=== PATIENT | male | born 1950 | race Two or more races ===

== ENCOUNTER 2016-07-11 09:30 | Emergency (ER) | payer OTHER ==
[2016-07-11 09:55] VITALS: BP 143/76; PULSE 64; TEMP 97.7; BMI 28.2
--- NOTE | 2016-07-11 10:50 | PDOC ---
History of Present Illness - General Chief Complaint: Wound Stated Complaint: RT KNEE PAIN Time Seen by Provider: 07/11/16 10:09 History Source: Patient Exam Limitations: No Limitations - History of Present Illness Initial Comments: 07/11/16 10:44 65-year-old male presents the ED with wound to his right phan for the past 10 days. Patient states was walking in his home in [facility] when scraped against a piece of furniture causing him to abrade the skin. Patient states went to a local clinic who gave him a tetanus and antibiotics. Patient states completed the antibiotics yesterday and although he denies any worsening symptoms he also states that the wound has not completely closed so came here for second opinion and evaluation. Patient states no history of immunosuppression including diabetes. Patient denies radiation of pain, patient denies swelling or increased redness. Timing/Duration: changing over time Severity: mild Associated Symptoms: reports: denies symptoms Past History - Past Medical History Allergies/Adverse Reactions: Allergies Allergy/AdvReac Type Severity Reaction Status Date / Time No Known Allergies Allergy Verified 07/11/16 09:55 Home Medications: Ambulatory Orders Amlodipine Besylate [Norvasc -] 10 mg PO DAILY 07/11/16 Aspirin [ASA -] 81 mg PO DAILY 07/11/16 Cholecalciferol (Vitamin D3) [Vitamin D3] 50,000 unit PO MO 07/11/16 Cyclobenzaprine HCl [Flexeril 10 mg] 10 mg PO BID PRN 07/11/16 Losartan Potassium 100 mg PO DAILY 07/11/16 Metoprolol Succinate [Toprol Xl -] 100 mg PO DAILY 07/11/16 Sulfamethoxazole/Trimethoprim [Bactrim Ds -] 1 tab PO BID #14 tablet 07/11/16 Cardiac Disorders: Yes HTN: Yes Hypercholesterolemia: Yes - Surgical History Cardiac Surgery: Yes (STENTS) - Psycho/Social/Smoking Cessation Hx Suicidal Ideation: No Smoking History: Never smoked Information on smoking cessation initiated: No Hx Alcohol Use: No Drug/Substance Use Hx: No Substance Use Type: None Patient Lives Alone: No Lives with/in: spouse/SO Review of Systems - Review of Systems Able to Perform ROS?: Yes Constitutional: No: Symptoms Reported Musculoskeletal: No: Symptoms Reported Integumentary: Yes: See HPI Neurological: No: Numbness, Weakness Endocrine: No: Symptoms Reported Hematologic/Lymphatic: No: Symptoms Reported *Physical Exam - Vital Signs Last Vital Signs Temp Pulse Resp BP Pulse Ox 97.7 F 64 18 143/76 97 07/11/16 09:51 07/11/16 09:51 07/11/16 09:51 07/11/16 09:51 07/11/16 09:51 - Physical Exam General Appearance: Yes: Nourished, Appropriately Dressed. No: Apparent Distress Vascular Pulses: Dorsalis-Pedis (R): 2+ Extremity: positive: Normal Capillary Refill, Normal Range of Motion. negative : Normal Inspection (Pt with pink epitheal moist wound measuring 3x2 cm to anterior mid phan with minmal erythema surrounding wound. No edema, streaking or increased warmth. Center draining serosangious fluid ), Tender Integumentary: positive: Normal Color, Warm, Moist Neurologic: positive: Motor Strength 5/5 (ambulatory) Medical Decision Making - Medical Decision Making 07/11/16 10:49 Patient with wound to the right anterior phan which she states has not worsened but still is present and is healing slowly. Patient is not a diabetic or immunosuppressant did receive a tetanus in [place] 9 days ago. Patient be discharged home after collecting a wound culture with Bactrim *DC/Admit/Observation/Transfer Diagnosis at time of Disposition: Leg wound, right Qualifiers: Encounter type: initial encounter Qualified Code(s): S81.801A - Unspecified open wound, right lower leg, initial encounter - Discharge Dispostion Disposition: HOME Condition at time of disposition: Good - Prescriptions Prescriptions: Sulfamethoxazole/Trimethoprim [Bactrim Ds -] 1 tab PO BID #14 tablet - Referrals Referrals: Last Tavera [Primary Care Provider] - - Patient Instructions Printed Discharge Instructions: Skin Wound Additional Instructions: I recommend that you take the antibiotic as prescribed until completed. Please continue to place bacitracin to the affected area twice a day leaving open to air. Please also a loosefitting clothes to avoid irritation and friction to the area. Please follow-up with your PCP or return to ED if symptoms worsen
== END 2016-07-11 11:00 | disposition home or self-care (01) ==
LOC: JER 09:30
DX: S81.801A Unspecified open wound, right lower leg, initial encounter (principal); W22.01XA Walked into wall, initial encounter; Y93.89 Activity, other specified; Y92.9 Unspecified place or not applicable; Z95.5 Presence of coronary angioplasty implant and graft; I10 Essential (primary) hypertension; I51.9 Heart disease, unspecified
CPT/HCPCS: 87070; 87186; 87205; 99281-25

== ENCOUNTER 2017-06-20 20:43 | Observation (INO) | payer MEDICARE, OTHER ==
--- NOTE | 2017-06-20 20:59 | PDOC ---
Rapid Medical Evaluation Chief Complaint: Chest Pain Time Seen by Provider: 06/20/17 20:55 Medical Evaluation: Allergies Allergy/AdvReac Type Severity Reaction Status Date / Time No Known Allergies Allergy Verified 07/11/16 09:55 06/20/17 20:55 I have performed a brief in-person evaluation of the patient. The patient presents with a chief complaints of right chest pain since 4pm, with shortness of breath with exertion. Also reports discomfort in lower back and back of neck Pertinent physical exam findings: NAD unlabored breathing heart s1s2 I have ordered the following: ekg labs The patient will proceed to the ED for further evaluation.
--- NOTE | 2017-06-20 21:54 | PDOC ---
History of Present Illness <Vira Li - Last Filed: 06/21/17 00:23> - History of Present Illness Initial Comments: 06/20/17 22:54 The patient is a 66 year old male with a history of HTN, HLD, CAD s/p Stenting who presents for evaluation of chest pain and shortness of breath. The patient reports a 1 day history of sharp right sided chest pain that was initially intermittent and is now constant prompting his presentation to the ED for evaluation. He notes some associated dyspnea on exertion as well as worsening symptoms with movement. He also reports some lower back pain, but otherwise denies fevers, chills, nausea, vomiting, abdominal pain, or changes with urination or bowel movements. <Vinnie Scott - Last Filed: 06/22/17 09:12> - General Chief Complaint: Chest Pain Stated Complaint: CHEST AND BACK PAIN Time Seen by Provider: 06/20/17 20:55 Past History <Vira Li - Last Filed: 06/21/17 00:23> - Past Medical History Cardiac Disorders: Yes COPD: No HTN: Yes Hypercholesterolemia: Yes - Surgical History Cardiac Surgery: Yes (STENTS) - Suicide/Smoking/Psychosocial Hx Smoking History: Never smoked Hx Alcohol Use: No Drug/Substance Use Hx: No Substance Use Type: None <Vinnie Scott - Last Filed: 06/22/17 09:12> - Past Medical History Allergies/Adverse Reactions: Allergies Allergy/AdvReac Type Severity Reaction Status Date / Time No Known Allergies Allergy Verified 07/11/16 09:55 Home Medications: Ambulatory Orders Amlodipine Besylate [Norvasc -] 10 mg PO DAILY 07/11/16 Aspirin [ASA -] 81 mg PO DAILY 07/11/16 Cyclobenzaprine HCl [Flexeril 10 mg] 10 mg PO BID PRN 07/11/16 Losartan Potassium 100 mg PO DAILY 07/11/16 Metoprolol Succinate [Toprol Xl -] 100 mg PO DAILY 07/11/16 Review of Systems - Review of Systems Comments:: 06/20/17 22:56 Constitutional: No fevers, chills, fatigue, malaise HEENT: No Rhinorrhea, nasal congestion, visual changes Cardiovascular: Chest pain. No syncope, palpitations, lightheadedness Respiratory: Dyspnea on Exertion. No Cough, Hemoptysis, Gastrointestinal: No Abdominal pain, Nausea, Vomiting, Constipation, Diarrhea, Melena Genitourinary: No Dysuria, Frequency, Urgency, Hesitancy, Hematuria, Flank pain Musculoskeletal: No Myalgia, arthralgia Skin: No rashes, itching, bruising, pallor Neurologic: No Headache, Dizziness, Numbness, Weakness, or Tingling Psychiatric: No Hallucinations. No SI or HI <SoniaVinnie - Last Filed: 06/22/17 09:12> *Physical Exam - Vital Signs Last Vital Signs Temp Pulse Resp BP Pulse Ox 98.8 F 58 L 18 129/73 99 06/20/17 20:55 06/20/17 20:55 06/20/17 20:55 06/20/17 20:55 06/20/17 20:55 <Vira Li - Last Filed: 06/21/17 00:23> - Vital Signs Last Vital Signs Temp Pulse Resp BP Pulse Ox 98.8 F 58 L 18 129/73 99 06/20/17 20:55 06/20/17 20:55 06/20/17 20:55 06/20/17 20:55 06/20/17 20:55 - Physical Exam Comments: 06/20/17 22:57 General Appearance: Nourished. No Apparent Distress HEENT: EOMI, CONSUELO. No Pharyngeal Erythema, Tonsillar Exudate, Tonsillar Erythema Neck: No Cervical Lymphadenopathy Respiratory/Chest: Lungs Clear, Normal Breath Sounds. No Crackles, Rales, Rhonchi, Wheezing Cardiovascular: Regular Rhythm, Regular Rate. No Murmur, Gallops, Rubs Gastrointestinal/Abdominal: Normal Bowel Sounds, Soft. No Guarding, Rebound, Tenderness Musculoskeletal: No CVA Tenderness Extremity: Normal Capillary Refill Integumentary: Normal Color, Dry, Warm Neurologic: Fully Oriented, Alert, Normal Mood/Affect, Normal Response, <Vinnie Scott - Last Filed: 06/22/17 09:12> Heart Score/ECG Review - History History: Moderately suspicious - Electrocardiogram EKG: Normal - Age Age: >/= 65 - Risk Factors Risk Factors Heart Score: Yes Hx Hypercholesterolemia, Yes Hx Hypertension, Yes Hx Obesity Based on the list above the patient has:: >/=3 risk factors or Hx atherosclerotic disease - Troponin Troponin: </= normal limit - Score Heart Score - Total: 5 #1 ECG reviewed & interpreted by me at: 22:57 General ECG Interpretation: Sinus Rhythm, Normal Rate, Normal Intervals, No acute ischemic changes <Vinnie Scott - Last Filed: 06/22/17 09:12> ED Treatment Course - LABORATORY CBC & Chemistry Diagram: 06/20/17 22:20 06/20/17 22:16 - ADDITIONAL ORDERS Additional order review: Laboratory Results 06/20/17 22:16 Sodium 141 Potassium 3.9 Chloride 111 H Carbon Dioxide 23 Anion Gap 7 L BUN 16 Creatinine 1.2 Creat Clearance w eGFR > 60 Random Glucose 105 Calcium 7.9 L Total Bilirubin 0.3 AST 39 H ALT 40 Alkaline Phosphatase 86 Creatine Kinase 354 H Creatine Kinase Index 1.0 CK-MB (CK-2) 3.625 H Troponin I < 0.02 B-Natriuretic Peptide 185.90 H Total Protein 6.7 Albumin 3.5 06/20/17 22:20 RBC 3.70 L MCV 93.0 MCHC 35.3 RDW 15.2 MPV 9.0 Neutrophils % 31.2 L Lymphocytes % 45.2 H Monocytes % 14.1 H Eosinophils % 8.5 H Basophils % 1.0 - Medications Given in the ED: ED Medications Discontinued Medications Generic Name Dose Route Start Last Admin Trade Name Freq PRN Reason Stop Dose Admin Aspirin 324 mg 06/20/17 23:22 06/21/17 00:15 Asa - PO 06/20/17 23:23 324 mg ONCE ONE Administration <Vira Li - Last Filed: 06/21/17 00:23> - LABORATORY CBC & Chemistry Diagram: 06/22/17 05:00 06/22/17 05:00 - RADIOLOGY Radiology Studies Ordered: Category Date Time Status CHEST PA & LAT [RAD] Stat Radiology 06/20/17 21:44 Ordered SPINE-LUMBAR SACRAL [RAD] Stat Radiology 06/20/17 21:44 Ordered <Vinnie Scott - Last Filed: 06/22/17 09:12> Medical Decision Making - Medical Decision Making 06/20/17 22:58 The patient is a 66 year old male with a history of HTN, HLD, CAD s/p Stenting who presents for evaluation of chest pain and shortness of breath. Differential includes but is not limited to: ACS, Arrhythmia, Angina, Infectious , Metabolic Derangement. Given the patient's cardiac history, we will obtain a cbc, cmp, troponin, bnp, chest plain film, ekg to evaluate further. The patient will likely require tele obs admission due to his cardiac risk factors. We will continue to monitor and reassess while here in the ED. 06/20/17 24:10 CBC, cmp, troponin, bnp are unremarkable. Chest plain film is unremarkable as preliminarily read by ER physician. Given the patient's risk factors and heart score, the patient will require observation admission for further work up and monitoring. <Vinnie Scott - Last Filed: 06/22/17 09:12> *DC/Admit/Observation/Transfer - Discharge Dispostion Admit: Yes <Vira Li - Last Filed: 06/21/17 00:23> <Vinnie Scott - Last Filed: 06/22/17 09:12> Diagnosis at time of Disposition: Chest pain
[2017-06-20 22:24] LABS: EOS % 8.5 % (0-4.5); HEMATOCRIT 34.4 % (35.4-49); HEMOGLOBIN 12.1 GM/dL (11.7-16.9); LYMPH % 45.2 % (8-40); MCH 32.8 pg (25.7-33.7); MCHC 35.3 g/dl (32.0-35.9); MONO % 14.1 % (3.8-10.2); NEUT % 31.2 % (42.8-82.8); PLATELET COUNT 225 K/MM3 (134-434); RDW 15.2 % (11.9-15.9); WHITE BLOOD COUNT 4.3 K/mm3 (4.0-10.0)
[2017-06-20 22:54] LABS: ALBUMIN 3.5 g/dl (3.4-5.0); ANION GAP 7 (8-16); BILIRUBIN,TOTAL 0.3 mg/dL (0.2-1.0); BLOOD UREA NITROGEN 16 mg/dL (7-18); CALCIUM 7.9 mg/dL (8.5-10.1); CHLORIDE 111 mmol/L (98-107); CO2 23 mmol/L (21-32); CREATININE 1.2 mg/dL (0.7-1.3); GLUCOSE,RANDOM 105 mg/dL (74-106); POTASSIUM 3.9 mmol/L (3.5-5.1); SGOT/AST 39 U/L (15-37); SGPT/ALT 40 U/L (12-78); SODIUM 141 mmol/L (136-145); TOT PROT 6.7 g/dl (6.4-8.2)
[2017-06-20 22:56] LABS: ALK PHOS 86 U/L (45-117)
[2017-06-20] MEDS ORDERED: ASPIRIN 81 MG CHEWABLE TABLETS PO ONE (23:22)
--- NOTE | 2017-06-20 23:25 | PDOC ---
Attending Attestation - Resident Resident Name: SoniaLawrenceVinnie - ED Attending Attestation I have performed the following: I have examined & evaluated the patient, The case was reviewed & discussed with the resident, I agree w/resident's findings & plan, Exceptions are as noted - HPI HPI: 06/20/17 23:21 66 yo CAD HTN, stent, here with chest pain. intermittent now constant. substernal no radiation. also c/o right flank pain. no new eakness or tingling. no mod factors. mild exertional dyspnea, no f/c no cough. no new leg swelling. - Physicial Exam PE: 06/20/17 23:23 awake alert lungs clear bilaterally heart rrr no mrg abd soft nd nt. ext wwp skin warm and dry nuero 5/5 all four ext - Medical Decision Making 06/20/17 23:24 differential: acs, infection, gerd, pna, no rf for pe. plan cxr ekg trop aspirin. pt chucky require admission for tele r/o acs.
[2017-06-21] MEDS ORDERED: ASPIRIN 325 MG ENTERIC COATED TABLET (FP) ONE (00:13)
--- NOTE | 2017-06-21 01:25 | HP ---
CHIEF COMPLAINT: Chest pain PCP: Dr. Last Tavera HISTORY OF PRESENT ILLNESS: 66yo man with PMH of HTN, HLD, CAD s/p 1x stent (2014) who p/w Right sided CP and worsening shortness of breath. Patient reports having R sided chest pain that started about a day ago, stabbing in character, initially intermittent, but now constant pain. Pt also reports R mid thoracic and R lower lumbar pain that is worse with movement and palpation. Pt endorses worsening ESPARZA; at baseline patient becomes sob after walking up a flight of stairs. Denies any fevers, chills, nausea, vomiting, abdominal pain, dysuria, hematuria, or any urinary symptoms. ER course was notable for: (1) EKG: sinus radha, rate 54. QTc 409 (2) Trop neg x1 (3) Lumbar Xray taken, report pending Recent Travel: none PAST MEDICAL HISTORY: see above PAST SURGICAL HISTORY: Social History: Smoking: never Alcohol: denies Drugs: denies Family History: father - [place] Allergies: NKDA HOME MEDICATIONS: Home Medications Medication Instructions Recorded Amlodipine Besylate [Norvasc -] 10 mg PO DAILY 07/11/16 Aspirin [ASA -] 81 mg PO DAILY 07/11/16 Cholecalciferol (Vitamin D3) 50,000 unit PO MO 07/11/16 [Vitamin D3] Cyclobenzaprine HCl [Flexeril 10 10 mg PO BID PRN 07/11/16 mg] Losartan Potassium 100 mg PO DAILY 07/11/16 Metoprolol Succinate [Toprol Xl -] 100 mg PO DAILY 07/11/16 REVIEW OF SYSTEMS CONSTITUTIONAL: Absent: fever, chills, diaphoresis, generalized weakness, malaise, loss of appetite, weight change HEENT: Absent: rhinorrhea, nasal congestion, throat pain, throat swelling, difficulty swallowing, mouth swelling, ear pain, eye pain, visual changes CARDIOVASCULAR: +chest pain Absent: syncope, palpitations, irregular heart rate, lightheadedness, peripheral edema RESPIRATORY: +shortness of breath, dyspnea with exertion Absent: cough, orthopnea, wheezing, stridor, hemoptysis GASTROINTESTINAL: Absent: abdominal pain, abdominal distension, nausea, vomiting, diarrhea, constipation, melena, hematochezia GENITOURINARY: Absent: dysuria, frequency, urgency, hesitancy, hematuria, flank pain, genital pain MUSCULOSKELETAL: Absent: myalgia, arthralgia, joint swelling, back pain, neck pain SKIN: Absent: rash, itching, pallor HEMATOLOGIC/IMMUNOLOGIC: Absent: easy bleeding, easy bruising, lymphadenopathy, frequent infections ENDOCRINE: Absent: unexplained weight gain, unexplained weight loss, heat intolerance, cold intolerance NEUROLOGIC: Absent: headache, focal weakness or paresthesias, dizziness, unsteady gait, seizure, mental status changes, bladder or bowel incontinence PSYCHIATRIC: Absent: anxiety, depression, suicidal or homicidal ideation, hallucinations. PHYSICAL EXAMINATION Vital Signs - 24 hr 06/20/17 20:55 Temperature 98.8 F Pulse Rate 58 L Respiratory 18 Rate Blood Pressure 129/73 O2 Sat by Pulse 99 Oximetry (%) GENERAL: aaox3, nad, speaking in full sentences w/o signs of dyspnea HEENT: sclera anicteric, conjunctiva clear, mmm NECK: supple, no cervical LAD LUNGS: CTAB HEART: rrr, normal s1/s2 ABDOMEN: soft, ntnd, +positive bowel sounds MSK: mild R anterior chest wall tpp, +R lumbar paraspinal ttp : no suprapubic or CVA tenderness Ext: wwp, trace pretibial pitting edema CBC, BMP 06/20/17 22:20 06/20/17 22:16 Hepatic Panel Total Bilirubin 0.3 mg/dL (0.2-1.0) 06/20/17 22:16 AST 39 U/L (15-37) H 06/20/17 22:16 ALT 40 U/L (12-78) 06/20/17 22:16 Alkaline Phosphatase 86 U/L (45-117) 06/20/17 22:16 Albumin 3.5 g/dl (3.4-5.0) 06/20/17 22:16 Troponin, BNP 06/20/17 22:16 Troponin I < 0.02 B-Natriuretic Peptide 185.90 H EKG: Sinus bradycardia, rate 54, septal infarct, age undetermined, QTc 409 Active Medications Acetaminophen (Tylenol -) 650 mg PO Q6H PRN PRN Reason: PAIN Amlodipine Besylate (Norvasc -) 10 mg PO DAILY [facility] Aspirin (Asa -) 81 mg PO DAILY [facility] Cyclobenzaprine HCl (Flexeril -) 10 mg PO BID PRN PRN Reason: PAIN Losartan Potassium (Cozaar -) 100 mg PO DAILY [facility] Metoprolol Succinate (Toprol Xl -) 100 mg PO DAILY [facility] Non-Formulary Medication (Cholecalciferol (Vitamin D3) [Vitamin D3]) 50,000 unit PO MO [facility] ASSESSMENT/PLAN: 66yo man with PMH of HTN, HLD, CAD s/p stent who presents with R sided chest pain. #atypical chest pain, r/o ACS -cardiology consulted, may need stress test -Serial Troponin Q6h -Tylenol prn for pain -nitropaste prn for chest pain -continuous telemetry monitoring #HTN- c/w home meds #HLD -on home Fenofibrate (dose needs to be confirmed with pharmacy), but not statin, unclear why #FEN PO intake lytes wnl Na controlled diet #DISPO: tele observation FULL code Visit type - Emergency Visit Emergency Visit: Yes ED Registration Date: 06/21/17 Care time: The patient presented to the Emergency Department on the above date and was hospitalized for further evaluation of their emergent condition. - New Patient This patient is new to me today: Yes Date on this admission: 06/21/17 - Critical Care Critical Care patient: No Hospitalist Screening - Colonoscopy Questionnaire Colonoscopy Questionnaire: Colonoscopy Questionnaire - Patient: 50 - 75 years old and never had a screening colonoscopy: Yes History of colon or rectal polyps, or CA: Unknown History of IBD, Crohn's disease or UC: Unknown History of abdominal radiation therapy as a child: Unknown - Relative: 1 with colon or rectal CA, or polyps at age 60 or younger: Unknown Colon or rectal CA diagnosed at age 45 or younger: Unknown Multiple relatives with colon or rectal CA: Unknown - Outcome: Screening Result: Positive Screen
[2017-06-21] MEDS ORDERED: ACETAMINOPHEN 325 MG TABLET (FP) ONE (01:32)
[2017-06-21] MEDS ORDERED: ACETAMINOPHEN 325 MG TABLET (FP) PO ONE (01:43)
[2017-06-21] MEDS ORDERED: ACETAMINOPHEN 325 MG TABLET (FP) PO PRN ×2 (02:51→06:50)
[2017-06-21 02:53] VITALS: BMI 29.4
--- NOTE | 2017-06-21 03:37 | PN ---
Teaching Attending Note Name of Resident: Lachelle Christie ATTENDING PHYSICIAN STATEMENT I saw and evaluated the patient. Chart, data, imaging reviewed. I reviewed the resident's note and discussed the case with the resident. I agree with the resident's findings and plan as documented. SUBJECTIVE: 66yo man with PMH of HTN, HLD, CAD s/p 1x stent (2014) c/o right sided chest pain for about 2 days worse with movement of his right upper extremity. He reported that pain started after he was cleaning. Denied any current shortness of breath. No fevers or cough. OBJECTIVE: Last Vital Signs Temp Pulse Resp BP Pulse Ox 97.7 F 55 L 20 129/70 99 06/21/17 02:43 06/21/17 02:43 06/21/17 02:43 06/21/17 02:43 06/20/17 20:55 general -resting comfortably, nontoxic, not in acute distress heent- at, nc, moist oral mucosa cv -s1+s2+rrr , no murmurs chest- right sided chest pain reproducible with palpation abdomen- soft, nontender, bs+ ext - 1+ pedal edema b/l Abnormal Lab Results 06/20/17 06/20/17 06/21/17 22:16 22:20 03:20 RBC 3.70 L Hct 34.4 L Neutrophils % 31.2 L Lymphocytes % 45.2 H Monocytes % 14.1 H Eosinophils % 8.5 H Chloride 111 H Anion Gap 7 L Calcium 7.9 L AST 39 H Creatine Kinase 354 H 337 H CK-MB (CK-2) 3.625 H B-Natriuretic Peptide 185.90 H ekg-q waves in lateral leads, poor r wave progression, sinus bradycardia cxr- wnl ASSESSMENT AND PLAN: #66yo man with CAD and abnormal ekg with atypical chest pain, reproducible with palpation. No acute ischemic changes on ekg and troponin was negative. Patient is not on statin for unknown reason. -tele-observation -trend troponin -repeat ekg -ASA -contact PMD to find out why patient is not on statin -lilian -acei -cardiology consult -cardiac stress test -DVT ppx -heparin sc -resume home medications
[2017-06-21] MEDS ORDERED: NITROGLYCERIN 2% OINTMENT - 1GM PACKET TD PRN (04:29)
[2017-06-21] MEDS: amLODIPine BESYLATE 10 MG TABLET (FP) PO SCH (09:05)
[2017-06-21] MEDS: LOSARTAN POTASSIUM 50 MG TABLET (FP) PO SCH (09:05)
[2017-06-21] MEDS: ASPIRIN 81 MG CHEWABLE TABLETS PO SCH (09:05)
[2017-06-21] MEDS: CYCLOBENZAPRINE HCL 10 MG TABLET (FP) PO PRN ×2 (09:35→22:26)
--- NOTE | 2017-06-21 10:02 | PN ---
Progress Note, Physician History of Present Illness: 66yo man with PMH of HTN, HLD, CAD s/p stent who presents with R sided chest pain. back paiin --lower spine and rt scapular pain - Current Medication List Current Medications: Active Medications Acetaminophen (Tylenol -) 650 mg PO Q6H PRN PRN Reason: PAIN LEVEL 1-5 Amlodipine Besylate (Norvasc -) 10 mg PO DAILY [facility] Last Admin: 06/21/17 09:05 Dose: 10 mg Aspirin (Asa -) 81 mg PO DAILY [facility] Last Admin: 06/21/17 09:05 Dose: 81 mg Cyclobenzaprine HCl (Flexeril -) 10 mg PO BID PRN PRN Reason: PAIN Last Admin: 06/21/17 09:35 Dose: 10 mg Losartan Potassium (Cozaar -) 100 mg PO DAILY [facility] Last Admin: 06/21/17 09:05 Dose: 100 mg Metoprolol Succinate (Toprol Xl -) 100 mg PO DAILY [facility] Nitroglycerin (Nitro-Bid 2% Paste -) 1 inch TD ONCE PRN PRN Reason: FOR CHEST PAIN - Objective Vital Signs: Vital Signs Temperature 97.9 F 06/21/17 09:25 Pulse Rate 54 L 06/21/17 09:25 Respiratory Rate 16 06/21/17 09:25 Blood Pressure 127/67 06/21/17 09:25 O2 Sat by Pulse Oximetry (%) 99 06/20/17 20:55 Neck: Yes: Supple Cardiovascular: Yes: Regular Rate and Rhythm Respiratory: Yes: Regular, CTA Bilaterally Gastrointestinal: Yes: Normal Bowel Sounds, Soft Musculoskeletal: Yes: Back Pain Labs: CBC, BMP 06/20/17 22:20 06/20/17 22:16 Problem List - Problems (1) Chest pain Assessment/Plan: #atypical chest pain, r/o ACS -cardiology consulted, june -needs stress test -Serial Troponin Q6h -Tylenol prn for pain -nitropaste prn for chest pain -continuous telemetry monitoring Code(s): R07.9 - CHEST PAIN, UNSPECIFIED (2) Back pain Assessment/Plan: -xrays nad -monitor Code(s): M54.9 - DORSALGIA, UNSPECIFIED (3) HTN (hypertension) Assessment/Plan: monitor on adjusted meds Code(s): I10 - ESSENTIAL (PRIMARY) HYPERTENSION (4) HLD (hyperlipidemia) Assessment/Plan: check lipids Code(s): E78.5 - HYPERLIPIDEMIA, UNSPECIFIED (5) Bradycardia Assessment/Plan: -metoprolol 50 qd -tele Code(s): R00.1 - BRADYCARDIA, UNSPECIFIED (6) Arrhythmia Assessment/Plan: -check k and mag -tele -cardio Code(s): I49.9 - CARDIAC ARRHYTHMIA, UNSPECIFIED (7) Hypocalcemia Assessment/Plan: -repeat -endo Code(s): E83.51 - HYPOCALCEMIA
[2017-06-21 11:47] LABS: ALBUMIN 3.6 g/dl (3.4-5.0); ANION GAP 8 (8-16); BILIRUBIN,TOTAL 0.3 mg/dL (0.2-1.0); BLOOD UREA NITROGEN 14 mg/dL (7-18); CALCIUM 8.6 mg/dL (8.5-10.1); CHLORIDE 108 mmol/L (98-107); CO2 23 mmol/L (21-32); GLUCOSE,RANDOM 104 mg/dL (74-106); MAGNESIUM 2.2 mg/dL (1.8-2.4); POTASSIUM 3.9 mmol/L (3.5-5.1); SGOT/AST 38 U/L (15-37); SGPT/ALT 43 U/L (12-78); SODIUM 139 mmol/L (136-145)
[2017-06-21 11:48] LABS: ALK PHOS 92 U/L (45-117)
[2017-06-21] MEDS: HEPARIN NA (PORCINE) 5,000 UNITS/ML 1ML VIAL SQ SCH ×2 (14:16→22:27)
--- NOTE | 2017-06-21 14:34 | EKG ---
Test Reason : Blood Pressure : / mmHG Vent. Rate : 054 BPM Atrial Rate : 054 BPM P-R Int : 180 ms QRS Dur : 102 ms QT Int : 432 ms P-R-T Axes : 068 027 057 degrees QTc Int : 409 ms SINUS BRADYCARDIA SEPTAL INFARCT (CITED ON OR BEFORE 17-FEB-2015) ABNORMAL ECG WHEN COMPARED WITH ECG OF 17-FEB-2015 11:56, QUESTIONABLE CHANGE IN INITIAL FORCES OF ANTERIOR LEADS Confirmed by MD Martin, Vinnie ([id number]) on 06/21/2017 2:34:09 PM Referred By: Confirmed By:Vinnie Salazar MD
[2017-06-21] MEDS: metoPROLOL SUCCINATE 25 MG TAB.SR.24H (FP) PO SCH (16:10)
--- NOTE | 2017-06-21 18:01 | CON.CARD ---
Consult Consult Specialty:: Cardiology - History of Present Illness Chief Complaint: Chest pain History of Present Illness: This is a 66 year old male with a PMH of HTN, HLD, and known CAD. He had a coronary stent in 2014. He presents now with atypical chest pain.; He describes a right sided chest pain which involves his right scapula. It stabbing quality and worse with movement. He also describes some ESPARZA. Troponin levels negative x3 EKG Sinus bradycardia at 54 BPM with normal intervals, normal axis, and NSSTTW changes. - Alcohol/Substance Use Hx Alcohol Use: No - Smoking History Smoking history: Never smoked Home Medications - Allergies Allergies/Adverse Reactions: Allergies Allergy/AdvReac Type Severity Reaction Status Date / Time No Known Allergies Allergy Verified 07/11/16 09:55 - Home Medications Home Medications: Ambulatory Orders Amlodipine Besylate [Norvasc -] 10 mg PO DAILY 07/11/16 Aspirin [ASA -] 81 mg PO DAILY 07/11/16 Cyclobenzaprine HCl [Flexeril 10 mg] 10 mg PO BID PRN 07/11/16 Losartan Potassium 100 mg PO DAILY 07/11/16 Metoprolol Succinate [Toprol Xl -] 100 mg PO DAILY 07/11/16 Review of Systems Findings/Remarks: Ads per HPI Vital Signs: Vital Signs Temperature 98.3 F 06/21/17 14:00 Pulse Rate 57 L 06/21/17 14:00 Respiratory Rate 20 06/21/17 14:00 Blood Pressure 126/66 06/21/17 14:00 O2 Sat by Pulse Oximetry (%) 99 06/21/17 10:00 Constitutional: Yes: Well Nourished HENT: Yes: WNL Neck: Yes: WNL Respiratory: Yes: CTA Bilaterally Gastrointestinal: Yes: Soft Cardiovascular: Yes: Regular Rate and Rhythm Heart Sounds: Yes: S1, S2 (No MRHG) Extremities: Yes: WNL Edema: No Neurological: Yes: Alert, Oriented (Non focal) - Other Data Labs, Other Data: CBC, BMP 06/20/17 22:20 06/21/17 10:25 Troponin, BNP 06/20/17 06/21/17 06/21/17 22:16 03:20 10:25 Troponin I < 0.02 < 0.02 < 0.02 B-Natriuretic Peptide 185.90 H Troponin, BNP 0506/21/17 06/21/17 22:16 03:20 10:25 Troponin I < 0.02 < 0.02 < 0.02 B-Natriuretic Peptide 185.90 H Assessment/Plan Chest Pain Atpical Troponin levels negative EKG non acute Would do cardiac stress testing, but would wait until musculoskelatal pain improves (either as inpatient or outpatient) Continue current meds
--- NOTE | 2017-06-21 23:59 | CONSULT ---
Consult Consult Specialty:: endocrine Referred by:: dr.annabi chawla Reason for Consultation:: hypocalcemia - History of Present Illness Chief Complaint: weakness muscle cramps History of Present Illness: 66yo man with PMH of HTN, HLD, CAD s/p 1x stent (2014) who p/w Right sided CP and worsening shortness of breath. Patient reports having R sided chest pain that started about a day ago, stabbing in character, initially intermittent, but now constant pain. Pt also reports R mid thoracic and R lower lumbar pain that is worse with movement,cramps in both legs weakness and numbness - Alcohol/Substance Use Hx Alcohol Use: No - Smoking History Smoking history: Never smoked Home Medications - Allergies Allergies/Adverse Reactions: Allergies Allergy/AdvReac Type Severity Reaction Status Date / Time No Known Allergies Allergy Verified 07/11/16 09:55 - Home Medications Home Medications: Ambulatory Orders Amlodipine Besylate [Norvasc -] 10 mg PO DAILY 07/11/16 Aspirin [ASA -] 81 mg PO DAILY 07/11/16 Cyclobenzaprine HCl [Flexeril 10 mg] 10 mg PO BID PRN 07/11/16 Losartan Potassium 100 mg PO DAILY 07/11/16 Metoprolol Succinate [Toprol Xl -] 100 mg PO DAILY 07/11/16 Review of Systems - Review of Systems Constitutional: reports: Weakness Eyes: reports: No Symptoms HENT: reports: No Symptoms Neck: reports: No Symptoms Cardiovascular: reports: No Symptoms Respiratory: reports: SOB on Exertion Gastrointestinal: reports: Constipation Genitourinary: reports: No Symptoms Breasts: reports: No Symptoms Reported Musculoskeletal: reports: Muscle Cramps, Muscle Weakness Neurological: reports: Weakness Physical Exam Vital Signs: Vital Signs Temperature 98.2 F 06/21/17 21:09 Pulse Rate 53 L 06/21/17 21:09 Respiratory Rate 20 06/21/17 21:09 Blood Pressure 127/70 06/21/17 21:09 O2 Sat by Pulse Oximetry (%) 99 06/21/17 18:00 Constitutional: Yes: Anxious Eyes: Yes: EOM Intact HENT: Yes: Normocephalic Neck: Yes: Trachea Midline Cardiovascular: Yes: Regular Rate and Rhythm Respiratory: Yes: CTA Bilaterally Gastrointestinal: Yes: Normal Bowel Sounds ...Rectal Exam: Yes: Deferred Renal/: Yes: WNL Breast(s): Yes: WNL Musculoskeletal: Yes: WNL Extremities: Yes: WNL Integumentary: Yes: WNL Neurological: Yes: Alert, Oriented Labs: CBC, BMP 06/20/17 22:20 06/21/17 10:25 Problem List - Problems (1) Back pain Code(s): M54.9 - DORSALGIA, UNSPECIFIED (2) HTN (hypertension) Code(s): I10 - ESSENTIAL (PRIMARY) HYPERTENSION (3) Hypocalcemia Code(s): E83.51 - HYPOCALCEMIA (4) Leg wound, right Code(s): S81.801A - UNSPECIFIED OPEN WOUND, RIGHT LOWER LEG, INITIAL ENCOUNTER Qualifiers: Encounter type: initial encounter Qualified Code(s): S81.801A - Unspecified open wound, right lower leg, initial encounter Assessment/Plan Current Active Problems Arrhythmia (Acute) Back pain (Acute) Bradycardia (Acute) Chest pain (Acute) HLD (hyperlipidemia) (Acute) HTN (hypertension) (Acute) Hypocalcemia (Acute) Abnormal Lab Results 06/21/17 06/21/17 06/21/17 03:20 10:25 10:25 Chloride 108 H AST 38 H Creatine Kinase 337 H 324 H CK-MB (CK-2) 3.775 H Laboratory Results - last 24 hr 06/21/17 06/21/17 06/21/17 03:20 10:25 10:25 Sodium 139 Potassium 3.9 Chloride 108 H Carbon Dioxide 23 Anion Gap 8 BUN 14 Creatinine 1.0 Creat Clearance w eGFR > 60 Random Glucose 104 Calcium 8.6 Magnesium 2.2 Total Bilirubin 0.3 AST 38 H ALT 43 Alkaline Phosphatase 92 Creatine Kinase 337 H 324 H Creatine Kinase Index 1.1 0.9 CK-MB (CK-2) 3.775 H 2.965 Troponin I < 0.02 < 0.02 Total Protein 7.0 Albumin 3.6 TSH 0.72 Free T4 1.07 plan continue drisdol 50k weekly oscal 500mg bid ck mg level ck pth level
[2017-06-22 07:00] LABS: ANION GAP 6 (8-16); BLOOD UREA NITROGEN 12 mg/dL (7-18); CALCIUM 8.4 mg/dL (8.5-10.1); CHLORIDE 108 mmol/L (98-107); CO2 26 mmol/L (21-32); CREATININE 1.1 mg/dL (0.7-1.3); GLUCOSE,RANDOM 95 mg/dL (74-106); SODIUM 140 mmol/L (136-145)
[2017-06-22 07:03] LABS: BASO % 0.9 % (0-2.0); EOS % 8.5 % (0-4.5); HEMATOCRIT 38.5 % (35.4-49); HEMOGLOBIN 13.3 GM/dL (11.7-16.9); LYMPH % 52.7 % (8-40); MCH 32.6 pg (25.7-33.7); MCHC 34.6 g/dl (32.0-35.9); MEAN CELL VOLUME 94.3 fl (80-96); MEAN PLT VOLUME 9.6 fl (7.5-11.1); MONO % 12.2 % (3.8-10.2); NEUT % 25.7 % (42.8-82.8); PLATELET COUNT 247 K/MM3 (134-434); RBC 4.08 M/mm3 (4.00-5.60); RDW 15.8 % (11.9-15.9); WHITE BLOOD COUNT 4.3 K/mm3 (4.0-10.0)
[2017-06-22 07:54] LABS: MAGNESIUM 2.2 mg/dL (1.8-2.4)
[2017-06-22] MEDS: LOSARTAN POTASSIUM 50 MG TABLET (FP) PO SCH (09:17)
[2017-06-22] MEDS: amLODIPine BESYLATE 10 MG TABLET (FP) PO SCH (09:18)
[2017-06-22] MEDS: ASPIRIN 81 MG CHEWABLE TABLETS PO SCH (09:18)
[2017-06-22] MEDS: HEPARIN NA (PORCINE) 5,000 UNITS/ML 1ML VIAL SQ SCH ×2 (09:18→21:34)
[2017-06-22] MEDS: CALCIUM 250MG/VIT-D 125 UNITS 1 COMBO TABLET PO SCH ×2 (09:18→21:34)
[2017-06-22] MEDS: metoPROLOL SUCCINATE 25 MG TAB.SR.24H (FP) PO SCH (09:18)
--- NOTE | 2017-06-22 11:03 | PN ---
Progress Note, Physician History of Present Illness: 66yo man with PMH of HTN, HLD, CAD s/p stent who presents with R sided chest pain. back paiin --lower spine and rt scapular pain - Current Medication List Current Medications: Active Medications Acetaminophen (Tylenol -) 650 mg PO Q6H PRN PRN Reason: PAIN LEVEL 1-5 Amlodipine Besylate (Norvasc -) 10 mg PO DAILY [facility] Last Admin: 06/22/17 09:18 Dose: 10 mg Aspirin (Asa -) 81 mg PO DAILY [facility] Last Admin: 06/22/17 09:18 Dose: 81 mg Calcium/Vitamin D (Oscal 250 Mg+D -) 1 tab PO BID [facility] Last Admin: 06/22/17 09:18 Dose: 1 tab Cyclobenzaprine HCl (Flexeril -) 10 mg PO BID PRN PRN Reason: PAIN Last Admin: 06/21/17 22:26 Dose: 10 mg Heparin Sodium (Porcine) (Heparin -) 5,000 unit SQ BID [facility] Last Admin: 06/22/17 09:18 Dose: 5,000 unit Losartan Potassium (Cozaar -) 100 mg PO DAILY [facility] Last Admin: 06/22/17 09:17 Dose: 100 mg Metoprolol Succinate (Toprol Xl -) 25 mg PO DAILY [facility] Last Admin: 06/22/17 09:18 Dose: 25 mg Nitroglycerin (Nitro-Bid 2% Paste -) 1 inch TD ONCE PRN PRN Reason: FOR CHEST PAIN - Objective Vital Signs: Vital Signs Temperature 98.4 F 06/22/17 10:00 Pulse Rate 54 L 06/22/17 10:00 Respiratory Rate 20 06/22/17 10:00 Blood Pressure 113/58 06/22/17 10:00 O2 Sat by Pulse Oximetry (%) 98 06/22/17 10:00 Cardiovascular: Yes: Regular Rate and Rhythm Respiratory: Yes: Regular, CTA Bilaterally Gastrointestinal: Yes: Normal Bowel Sounds, Soft Labs: CBC, BMP 06/22/17 05:00 06/22/17 05:00 Problem List - Problems (1) Chest pain Assessment/Plan: -atypical chest pain, r/o ACS -h/o cad--s/p stenting -cardiology consulted -needs stress test -Serial Troponin Q6h -Tylenol prn for pain -nitropaste prn for chest pain -continuous telemetry monitoring Code(s): R07.9 - CHEST PAIN, UNSPECIFIED (2) Back pain Assessment/Plan: -xrays nad--ct scan -monitor Code(s): M54.9 - DORSALGIA, UNSPECIFIED (3) HTN (hypertension) Assessment/Plan: monitor on adjusted meds Code(s): I10 - ESSENTIAL (PRIMARY) HYPERTENSION (4) HLD (hyperlipidemia) Assessment/Plan: check lipids -lipitor 20 Code(s): E78.5 - HYPERLIPIDEMIA, UNSPECIFIED (5) Bradycardia Assessment/Plan: -metoprolol 50 qd -tele Code(s): R00.1 - BRADYCARDIA, UNSPECIFIED (6) Arrhythmia Assessment/Plan: -check k and mag -tele -cardio Code(s): I49.9 - CARDIAC ARRHYTHMIA, UNSPECIFIED (7) Hypocalcemia Code(s): E83.51 - HYPOCALCEMIA
[2017-06-22] MEDS: ATORVASTATIN CA 20 MG TABLET (FP) PO SCH (21:34)
[2017-06-23] MEDS ORDERED: PATIENT'S OWN MEDICATION (NON-FORMULARY) (Cholecalciferol (Vitamin D3) [Vitamin D3] 50,000 PO SCH (02:49)
[2017-06-23] MEDS: LOSARTAN POTASSIUM 50 MG TABLET (FP) PO SCH ×2 (09:44→14:51)
[2017-06-23] MEDS: ASPIRIN 81 MG CHEWABLE TABLETS PO SCH ×2 (09:44→14:51)
[2017-06-23] MEDS: HEPARIN NA (PORCINE) 5,000 UNITS/ML 1ML VIAL SQ SCH ×3 (09:44→21:54)
[2017-06-23] MEDS: CALCIUM 250MG/VIT-D 125 UNITS 1 COMBO TABLET PO SCH ×3 (09:45→21:54)
[2017-06-23] MEDS: metoPROLOL SUCCINATE 25 MG TAB.SR.24H (FP) PO SCH ×2 (09:45→14:51)
[2017-06-23] MEDS: amLODIPine BESYLATE 10 MG TABLET (FP) PO SCH ×2 (09:45→14:52)
[2017-06-23] MEDS ORDERED: REGADENOSON 0.4 MG/5 ML PRE-FILLED SYRINGE IVPUSH ONE ×2 (12:55→13:00)
--- NOTE | 2017-06-23 16:08 | PN ---
Progress Note, Physician Chief Complaint: No chest pain overnight Tele sinus and unreventful History of Present Illness: This is a 66 year old male with a PMH of HTN, HLD, and known CAD. He had a coronary stent in 2014. He presents now with atypical chest pain.; He describes a right sided chest pain which involves his right scapula. It stabbing quality and worse with movement. He also describes some ESPARZA. Troponin levels negative x3 EKG Sinus bradycardia at 54 BPM with normal intervals, normal axis, and NSSTTW changes - Current Medication List Current Medications: Active Medications Acetaminophen (Tylenol -) 650 mg PO Q6H PRN PRN Reason: PAIN LEVEL 1-5 Amlodipine Besylate (Norvasc -) 10 mg PO DAILY [facility] Last Admin: 06/23/17 14:52 Dose: 10 mg Aspirin (Asa -) 81 mg PO DAILY [facility] Last Admin: 06/23/17 14:51 Dose: 81 mg Atorvastatin Calcium (Lipitor -) 20 mg PO HS [facility] Last Admin: 06/22/17 21:34 Dose: 20 mg Calcium/Vitamin D (Oscal 250 Mg+D -) 1 tab PO BID [facility] Last Admin: 06/23/17 14:52 Dose: 1 tab Cyclobenzaprine HCl (Flexeril -) 10 mg PO BID PRN PRN Reason: PAIN Last Admin: 06/21/17 22:26 Dose: 10 mg Heparin Sodium (Porcine) (Heparin -) 5,000 unit SQ BID [facility] Last Admin: 06/23/17 14:50 Dose: 5,000 unit Losartan Potassium (Cozaar -) 100 mg PO DAILY [facility] Last Admin: 06/23/17 14:51 Dose: 100 mg Metoprolol Succinate (Toprol Xl -) 25 mg PO DAILY [facility] Last Admin: 06/23/17 14:51 Dose: 25 mg Nitroglycerin (Nitro-Bid 2% Paste -) 1 inch TD ONCE PRN PRN Reason: FOR CHEST PAIN - Objective Vital Signs: Vital Signs Temperature 98.2 F 06/23/17 06:00 Pulse Rate 55 L 06/23/17 06:00 Respiratory Rate 18 06/23/17 06:00 Blood Pressure 135/55 06/23/17 06:00 O2 Sat by Pulse Oximetry (%) 98 06/23/17 10:00 Constitutional: Yes: No Distress Neck: Yes: WNL Cardiovascular: Yes: Regular Rate and Rhythm, S1, S2. No: JVD Respiratory: Yes: CTA Bilaterally Gastrointestinal: Yes: Normal Bowel Sounds, Soft Edema: No Labs: CBC, BMP 06/22/17 05:00 06/22/17 05:00 Assessment/Plan This is a 66 year old male with a PMH of HTN, HLD, and known CAD. He had a coronary stent in 2014 presenting with atypical chest pain. Troponins negative No ischemic ECG changes 1) CAD Nuclear Stress Test 06/23/17: moderate zone of natioer reversible defect from mid cavity to apex compatible with mild to moderate intensity ischemia. Mild anteroapical hypokinesis with LVEF 54%. Aspirin Statin Metoprolol dose continue Plan for transfer to [facility] tomorrow for cardiac cath. NPO after midnight 2) HTN BP controlled. Continue current regimen
--- NOTE | 2017-06-23 17:22 | DS ---
Physical Examination Vital Signs: Vital Signs Temperature 98.2 F 06/23/17 06:00 Pulse Rate 55 L 06/23/17 06:00 Respiratory Rate 18 06/23/17 06:00 Blood Pressure 135/55 06/23/17 06:00 O2 Sat by Pulse Oximetry (%) 98 06/23/17 10:00 Constitutional: Yes: No Distress Eyes: Yes: WNL HENT: Yes: WNL Neck: Yes: WNL Cardiovascular: Yes: WNL Respiratory: Yes: WNL Gastrointestinal: Yes: WNL Renal/: Yes: WNL Musculoskeletal: Yes: WNL Extremities: Yes: WNL Edema: No Integumentary: Yes: WNL Wound/Incision: Yes: Clean/Dry Neurological: Yes: WNL ...Motor Strength: WNL Psychiatric: Yes: WNL Labs: CBC, BMP 06/22/17 05:00 06/22/17 05:00 Discharge Summary Reason For Visit: CHEST PAIN Current Active Problems Arrhythmia (Acute) Back pain (Acute) Bradycardia (Acute) Chest pain (Acute) HLD (hyperlipidemia) (Acute) HTN (hypertension) (Acute) Hypocalcemia (Acute) Procedures: Principal: STRESS TEST Hospital Course: ADMITTED FOR CHEST PAIN STRESS TEST POSITIVE TRANSFERRING TO [facility] FOR CARDIAC CATH - Instructions Referrals: Last Tavera [Primary Care Provider] - Disposition: TRANSFER ACUTE CARE/OTHER HOSP - Home Medications Comprehensive Discharge Medication List: Ambulatory Orders Amlodipine Besylate [Norvasc -] 10 mg PO DAILY 07/11/16 Aspirin [ASA -] 81 mg PO DAILY 07/11/16 Cyclobenzaprine HCl [Flexeril 10 mg] 10 mg PO BID PRN 07/11/16 Losartan Potassium 100 mg PO DAILY 07/11/16 Metoprolol Succinate [Toprol Xl -] 100 mg PO DAILY 07/11/16
[2017-06-23] MEDS: ATORVASTATIN CA 20 MG TABLET (FP) PO SCH (21:54)
[2017-06-24] MEDS: CALCIUM 250MG/VIT-D 125 UNITS 1 COMBO TABLET PO SCH (09:05)
[2017-06-24] MEDS: metoPROLOL SUCCINATE 25 MG TAB.SR.24H (FP) PO SCH (09:05)
[2017-06-24] MEDS: amLODIPine BESYLATE 10 MG TABLET (FP) PO SCH (09:05)
[2017-06-24] MEDS: ASPIRIN 81 MG CHEWABLE TABLETS PO SCH (09:05)
[2017-06-24] MEDS: LOSARTAN POTASSIUM 50 MG TABLET (FP) PO SCH (09:05)
[2017-06-24] MEDS: HEPARIN NA (PORCINE) 5,000 UNITS/ML 1ML VIAL SQ SCH (09:06)
--- NOTE | 2017-06-24 09:31 | PN ---
Progress Note, Physician Chief Complaint: No complaints today or overnight Tele: sinus History of Present Illness: This is a 66 year old male with a PMH of HTN, HLD, and known CAD. He had a coronary stent to the LAD in 2014. He presents now with atypical chest pain.; He describes a right sided chest pain which involves his right scapula. It stabbing quality and worse with movement. He also describes some ESPARZA. Troponin levels negative x3 EKG Sinus bradycardia at 54 BPM with normal intervals, normal axis, and NSSTTW changes - Current Medication List Current Medications: Active Medications Acetaminophen (Tylenol -) 650 mg PO Q6H PRN PRN Reason: PAIN LEVEL 1-5 Amlodipine Besylate (Norvasc -) 10 mg PO DAILY [facility] Last Admin: 06/24/17 09:05 Dose: 10 mg Aspirin (Asa -) 81 mg PO DAILY [facility] Last Admin: 06/24/17 09:05 Dose: 81 mg Atorvastatin Calcium (Lipitor -) 20 mg PO HS [facility] Last Admin: 06/23/17 21:54 Dose: 20 mg Calcium/Vitamin D (Oscal 250 Mg+D -) 1 tab PO BID [facility] Last Admin: 06/24/17 09:05 Dose: 1 tab Cyclobenzaprine HCl (Flexeril -) 10 mg PO BID PRN PRN Reason: PAIN Last Admin: 06/21/17 22:26 Dose: 10 mg Heparin Sodium (Porcine) (Heparin -) 5,000 unit SQ BID [facility] Last Admin: 06/24/17 09:06 Dose: Not Given Losartan Potassium (Cozaar -) 100 mg PO DAILY [facility] Last Admin: 06/24/17 09:05 Dose: 100 mg Metoprolol Succinate (Toprol Xl -) 25 mg PO DAILY [facility] Last Admin: 06/24/17 09:05 Dose: 25 mg Nitroglycerin (Nitro-Bid 2% Paste -) 1 inch TD ONCE PRN PRN Reason: FOR CHEST PAIN - Objective Vital Signs: Vital Signs Temperature 98.2 F 06/24/17 05:49 Pulse Rate 55 L 06/24/17 05:49 Respiratory Rate 18 06/24/17 05:49 Blood Pressure 131/64 06/24/17 05:49 O2 Sat by Pulse Oximetry (%) 97 06/23/17 20:31 Constitutional: Yes: No Distress Neck: Yes: Supple Cardiovascular: Yes: Regular Rate and Rhythm, S1, S2. No: JVD, Murmur Respiratory: Yes: CTA Bilaterally Gastrointestinal: Yes: Normal Bowel Sounds, Soft Edema: No Labs: CBC, BMP 06/22/17 05:00 06/22/17 05:00 Assessment/Plan This is a 66 year old male with a PMH of HTN, HLD, and known CAD. He had a coronary stent to the LAD in 2014 presenting with atypical chest pain. Troponins negative No ischemic ECG changes 1) CAD Nuclear Stress Test 06/23/17: moderate zone of natioer reversible defect from mid cavity to apex compatible with mild to moderate intensity ischemia. Mild anteroapical hypokinesis with LVEF 54%. Aspirin Statin Metoprolol dose continue Plan for transfer to [facility] for cardiac systems testing laboratory technician today to evaluate for possible stent placement. 2) HTN BP controlled. Continue current regimen
[2017-06-24 10:21] VITALS: BP 125/70; PULSE 62; TEMP 98
== END 2017-06-24 11:06 | disposition short-term general hospital (02) ==
LOC: JER 20:43 → JERBED 06-21 00:24 → UNDOADMOB 06-21 00:30 → JERBED 06-21 00:30 → J4W 06-21 02:41
PROVIDERS: ADMIT Internal Medicine; ATTEND Family Medicine
PROC: 3E033GC Introduction of Other Therapeutic Substance into Peripheral Vein, Percutaneous Approach (ICD-10-PCS; principal; 2017-06-21)
DX: R07.89 Other chest pain (principal); I10 Essential (primary) hypertension; I25.10 Atherosclerotic heart disease of native coronary artery without angina pectoris; E78.5 Hyperlipidemia, unspecified; Z79.82 Long term (current) use of aspirin; R00.1 Bradycardia, unspecified; I49.9 Cardiac arrhythmia, unspecified; E83.51 Hypocalcemia; Z95.5 Presence of coronary angioplasty implant and graft
CPT/HCPCS: 36415; 71046-TC-FY; 72100-TC-FY; 72131-TC; 78452-TC; 80048; 80053; 80061; 82550; 82553; 83721; 83735; 83880; 83970; 84439; 84443; 84484; 85025; 93005; 93010; 93017; 93306-TC; 96374; 99283-25; A9502; G0378; J1644; J2785

== ENCOUNTER 2017-07-09 19:57 | Emergency (ER) | payer MEDICARE, OTHER ==
--- NOTE | 2017-07-09 20:10 | PDOC ---
Rapid Medical Evaluation Chief Complaint: Back Pain Time Seen by Provider: 07/09/17 20:04 Medical Evaluation: Allergies Allergy/AdvReac Type Severity Reaction Status Date / Time No Known Allergies Allergy Verified 07/11/16 09:55 c/o neck and lower back pain x 3 days. denies taking pain medication recent admission for chest pain s/p stent d/kelly from [facility] on 06/26/2017/ PE: + left side of neck pain on palpation, left side lumbar area pain. A: back pain P: ekg patient to the ER for further management of care. Discharge Disposition - Diagnosis Back pain Qualifiers: Back pain location: low back pain Chronicity: acute Back pain laterality: bilateral Sciatica presence: without sciatica Qualified Code(s): M54.5 - Low back pain - Referrals - Patient Instructions - Post Discharge Activity
[2017-07-09 20:12] VITALS: BP 112/67; PULSE 53; TEMP 98.2; BMI 28.2
--- NOTE | 2017-07-09 20:43 | PDOC ---
History of Present Illness - General Chief Complaint: Back Pain Stated Complaint: BACK PAIN Time Seen by Provider: 07/09/17 20:04 - History of Present Illness Initial Comments: 66-year-old male with lower back pain for 3 days with associated left leg radicular symptoms. No loss of bowel or bladder function. Pain is exacerbated with activity and prolonged sitting relieved with rest with the above-mentioned radiation. He has hypertension and was recently hospitalized for chest pain. 07/09/17 20:38 Past History - Past Medical History Allergies/Adverse Reactions: Allergies Allergy/AdvReac Type Severity Reaction Status Date / Time No Known Allergies Allergy Verified 07/09/17 20:12 Home Medications: Ambulatory Orders Amlodipine Besylate [Norvasc -] 10 mg PO DAILY 07/11/16 Aspirin [ASA -] 81 mg PO DAILY 07/11/16 Cyclobenzaprine HCl [Flexeril 10 mg] 10 mg PO BID PRN 07/11/16 Losartan Potassium 100 mg PO DAILY 07/11/16 Metoprolol Succinate [Toprol Xl -] 100 mg PO DAILY 07/11/16 Atorvastatin Ca [Lipitor] 20 mg PO HS tablet 06/23/17 Calcium 250Mg/Vit-D 125 Units [Oscal 250 mg+D -] 1 tab PO BID tab 06/23/17 Heparin - 5,000 unit SQ BID vial 06/23/17 Metoprolol Succinate [Toprol XL -] 25 mg PO DAILY tab.sr.24h 06/23/17 Nitroglycerin 2% Paste [Nitro-Bid 2% Paste -] 1 inch TD ONCE PRN packet Cardiac Disorders: Yes COPD: No HTN: Yes Hypercholesterolemia: Yes - Surgical History Cardiac Surgery: Yes (STENTS) - Suicide/Smoking/Psychosocial Hx Smoking History: Never smoked Have you smoked in the past 12 months: No Information on smoking cessation initiated: No Hx Alcohol Use: No Drug/Substance Use Hx: No Substance Use Type: None Review of Systems - Review of Systems Comments:: GENERAL/CONSTITUTIONAL: No fever or chills. No weakness. No weight change. HEAD, EYES, EARS, NOSE AND THROAT: No change in vision. No ear pain or discharge. No sore throat. CARDIOVASCULAR: No chest pain or shortness of breath. RESPIRATORY: No cough, wheezing, or hemoptysis. GASTROINTESTINAL: No nausea, vomiting, diarrhea or constipation. No rectal bleeding. GENITOURINARY: No dysuria, frequency, or change in urination. MUSCULOSKELETAL: No joint or muscle swelling or pain. No neck pain + back pain. SKIN AND BREASTS: No rash or easy bruising. NEUROLOGIC: No headache, vertigo, loss of consciousness, or loss of sensation. PSYCHIATRIC: No depression or anxiety. ENDOCRINE: No increased thirst. No abnormal weight change. HEMATOLOGIC/LYMPHATIC: No anemia, easy bleeding, or history of blood clots. ALLERGIC/IMMUNOLOGIC: No hives or skin allergy. No latex allergy. 07/09/17 20:39 *Physical Exam - Vital Signs Last Vital Signs Temp Pulse Resp BP Pulse Ox 98.2 F 53 L 16 112/67 100 07/09/17 20:10 07/09/17 20:10 07/09/17 20:10 07/09/17 20:10 07/09/17 20:10 - Physical Exam Comments: Lumbar spine skin color and temperature are normal. There is decreased nonpainful range of motion. 5 out of 5 strength in bilateral lower extremities. Patella and Achilles reflexes are 2+ and symmetric bilaterally. There is no clonus. Straight leg raise test is negative on the left and positive on the right. Thighs and calves are soft and nontender. There are no gross sensory motor deficits. Neurovascularly intact. 07/09/17 20:40 Medical Decision Making - Medical Decision Making 07/09/17 20:41 This pain is not cardiac in nature and is reproducable. Tylenol for pain given the recent hospitalization for CP *DC/Admit/Observation/Transfer Diagnosis at time of Disposition: Lumbar radicular pain Back pain Qualifiers: Back pain location: low back pain Chronicity: acute Back pain laterality: bilateral Sciatica presence: without sciatica Qualified Code(s): M54.5 - Low back pain - Discharge Dispostion Disposition: HOME Condition at time of disposition: Stable Decision to Admit order: No - Referrals Referrals: Last Tavera [Primary Care Provider] - Neftali Loza MD [Staff Physician] - - Patient Instructions Printed Discharge Instructions: Lumbar Radiculopathy, DI for Lumbar Radiculopathy Additional Instructions: Follow-up with spine surgery. At this point given your recent hospitalization for chest pain he should only take Tylenol for pain. Return to the emergency room if symptoms worsen or go unresolved prior to follow-up with spine surgery. - Post Discharge Activity
== END 2017-07-09 20:45 | disposition home or self-care (01) ==
LOC: JERFT 19:57
DX: M54.16 Radiculopathy, lumbar region (principal); M54.5 Low back pain; I10 Essential (primary) hypertension; Z95.5 Presence of coronary angioplasty implant and graft; E78.00 Pure hypercholesterolemia, unspecified
CPT/HCPCS: 99281-25

== ENCOUNTER 2018-01-07 20:44 | Emergency (ER) | payer BC, OTHER ==
--- NOTE | 2018-01-07 20:49 | PDOC ---
Rapid Medical Evaluation Time Seen by Provider: 01/07/18 20:46 Medical Evaluation: Allergies Allergy/AdvReac Type Severity Reaction Status Date / Time No Known Allergies Allergy Verified 09/09/17 03:45 01/07/18 20:46 I have performed a brief in-person evaluation of this patient. The patient presents with a chief complaint of: lower back pain, dysuria Pertinent physical exam findings: R CVAT. I have ordered the following: urine The patient will proceed to the ED for further evaluation. Discharge Disposition - Diagnosis Dysuria - Referrals - Patient Instructions - Post Discharge Activity
[2018-01-07 20:50] VITALS: BP 129/75; PULSE 56; TEMP 98.4; BMI 29.5
--- NOTE | 2018-01-07 21:29 | PDOC ---
History of Present Illness - General Chief Complaint: Back Pain Stated Complaint: PAIN Time Seen by Provider: 01/07/18 20:46 - History of Present Illness Initial Comments: 01/07/18 21:26 67-year-old male with a past medical history significant for hypertension and dyslipidemia presents for evaluation of one day of neck and lower back pain. He radicular symptoms. Past History - Past Medical History Allergies/Adverse Reactions: Allergies Allergy/AdvReac Type Severity Reaction Status Date / Time No Known Allergies Allergy Verified 01/07/18 20:50 Home Medications: Ambulatory Orders Amlodipine Besylate [Norvasc -] 10 mg PO DAILY 07/11/16 Aspirin [ASA -] 81 mg PO DAILY 07/11/16 Cyclobenzaprine HCl [Flexeril 10 mg] 10 mg PO BID PRN 07/11/16 Losartan Potassium 100 mg PO DAILY 07/11/16 Metoprolol Succinate [Toprol Xl -] 100 mg PO DAILY 07/11/16 Atorvastatin Ca [Lipitor] 20 mg PO HS tablet 06/23/17 Calcium 250Mg/Vit-D 125 Units [Oscal 250 mg+D -] 1 tab PO BID tab 06/23/17 Heparin - 5,000 unit SQ BID vial 06/23/17 Metoprolol Succinate [Toprol XL -] 25 mg PO DAILY tab.sr.24h 06/23/17 Cyclobenzaprine HCl [Flexeril 10 mg] 10 mg PO HS PRN #10 tablet 01/07/18 Cardiac Disorders: Yes COPD: No HTN: Yes Hypercholesterolemia: Yes - Surgical History Cardiac Surgery: Yes ([facility]) - Suicide/Smoking/Psychosocial Hx Smoking History: Never smoked Have you smoked in the past 12 months: No Information on smoking cessation initiated: No Hx Alcohol Use: No Drug/Substance Use Hx: No Substance Use Type: None Review of Systems - Review of Systems Musculoskeletal: Yes: Back Pain, Neck Pain *Physical Exam - Vital Signs Last Vital Signs Temp Pulse Resp BP Pulse Ox 98.4 F 56 L 18 129/75 100 01/07/18 20:48 01/07/18 20:48 01/07/18 20:48 01/07/18 20:48 01/07/18 20:48 - Physical Exam Comments: 01/07/18 21:27 Cervical spine skin color and temperature are normal range of motion is full with some discomfited terminal ranges. 5 out of 5 strength in bilateral upper extremities no gross sensorimotor deficits negative Spurling maneuver mild paracervical and thoracic musculature spasm and tenderness. He is neurovascularly intact. No midline tenderness Lumbar spine skin color and temperature are normal range of motion is slightly decreased. There is no midline tenderness mild paralumbar musculature spasm and tenderness 5 out of 5 strength in bilateral lower extremities without gross sensorimotor deficits she's neurovascularly intact *DC/Admit/Observation/Transfer Diagnosis at time of Disposition: Dysuria, Muscle strain, Back pain, Neck pain - Discharge Dispostion Disposition: HOME Condition at time of disposition: Stable Decision to Admit order: No - Prescriptions Prescriptions: Cyclobenzaprine HCl [Flexeril 10 mg] 10 mg PO HS PRN #10 tablet PRN Reason: Muscle Spasms - Referrals Referrals: Last Tavera [Primary Care Provider] - Neftali Loza MD [Staff Physician] - - Patient Instructions Printed Discharge Instructions: Muscle Strain Additional Instructions: Please take the medication as directed. Return to the emergency room should symptoms worsen or go unresolved. Please follow-up with spine surgery in 2-3 days for further evaluation and treatment options. Again return to the emergency room should symptoms worsen or go unresolved - Post Discharge Activity
== END 2018-01-07 21:34 | disposition home or self-care (01) ==
LOC: JERFT 20:44
DX: S39.012A Strain of muscle, fascia and tendon of lower back, initial encounter (principal); I25.10 Atherosclerotic heart disease of native coronary artery without angina pectoris; I10 Essential (primary) hypertension; Z95.5 Presence of coronary angioplasty implant and graft; E78.5 Hyperlipidemia, unspecified; X58.XXXA Exposure to other specified factors, initial encounter; Y93.89 Activity, other specified; Y92.89 Other specified places as the place of occurrence of the external cause; Y99.8 Other external cause status
CPT/HCPCS: 99281-25

== ENCOUNTER 2018-04-24 11:16 | Observation (INO) | payer OTHER, BC ==
[2018-04-24] MEDS ORDERED: ASPIRIN 81 MG CHEWABLE TABLETS PO ONE (13:51)
[2018-04-24] MEDS ORDERED: ASPIRIN 81 MG CHEWABLE TABLETS ONE (14:04)
[2018-04-24 14:14] LABS: BASO % 1.4 % (0-2.0); EOS % 7.4 % (0-4.5); HEMATOCRIT 40.4 % (35.4-49); LYMPH % 43.7 % (8-40); MCHC 34.7 g/dl (32.0-35.9); MEAN CELL VOLUME 95.3 fl (80-96); MONO % 10.1 % (3.8-10.2); NEUT % 37.4 % (42.8-82.8); PLATELET COUNT 207 K/MM3 (134-434); RBC 4.24 M/mm3 (4.00-5.60); RDW 14.3 % (11.9-15.9); WHITE BLOOD COUNT 5.2 K/mm3 (4.0-10.0)
--- NOTE | 2018-04-24 14:25 | PDOC ---
History of Present Illness - General Chief Complaint: Chest Pain Stated Complaint: LOWER BACK / CHEST PAIN Time Seen by Provider: 04/24/18 13:50 - History of Present Illness Initial Comments: 04/24/18 15:29 67m with pmh of HTN, HLD and [place] s/p CABG presents to the ED with 5/10 right sided chest pain and sob on exertion since waking up this morning. He says the pain is triggered when he walks. No radiation down the arms but some tingling in the right fingers. Denies diaphoresis, cough, feverm chills, n/v. Took his usual medication this morning including aspirin but nothing additional. Also complains of back pain which is chronic for him. Past History - Past Medical History Allergies/Adverse Reactions: Allergies Allergy/AdvReac Type Severity Reaction Status Date / Time No Known Allergies Allergy Verified 04/24/18 11:21 Home Medications: Ambulatory Orders Amlodipine Besylate [Norvasc -] 10 mg PO DAILY 07/11/16 Aspirin [ASA -] 81 mg PO DAILY 07/11/16 Losartan Potassium 100 mg PO DAILY 07/11/16 Atorvastatin Ca [Lipitor] 20 mg PO HS tablet 06/23/17 Calcium 250Mg/Vit-D 125 Units [Oscal 250 mg+D -] 1 tab PO BID tab 06/23/17 Metoprolol Succinate [Toprol XL -] 25 mg PO DAILY tab.sr.24h 06/23/17 Cyclobenzaprine HCl [Flexeril 10 mg] 10 mg PO HS PRN #10 tablet 01/07/18 Cardiac Disorders: Yes COPD: No HTN: Yes Hypercholesterolemia: Yes - Surgical History Cardiac Surgery: Yes ([facility]) - Immunization History Immunization Up to Date: Yes - Suicide/Smoking/Psychosocial Hx Smoking History: Never smoked Have you smoked in the past 12 months: No Information on smoking cessation initiated: No Hx Alcohol Use: No Drug/Substance Use Hx: No Substance Use Type: None Review of Systems - Review of Systems Able to Perform ROS?: Yes Is the patient limited Citizen Of [place] proficient: No Constitutional: No: Symptoms Reported HEENTM: No: Symptoms Reported Respiratory: Yes: See HPI, SOB with Exertion Cardiac (ROS): Yes: See HPI ABD/GI: No: Symptoms Reported : No: Symptoms Reported Musculoskeletal: Yes: See HPI Integumentary: No: Symptoms Reported Neurological: No: Symptoms reported All Other Systems: Reviewed and Negative *Physical Exam - Vital Signs Last Vital Signs Temp Pulse Resp BP Pulse Ox 97.7 F 58 L 17 125/78 98 04/24/18 11:22 04/24/18 13:36 04/24/18 13:36 04/24/18 13:36 04/24/18 13:36 - Physical Exam General Appearance: Yes: Nourished, Appropriately Dressed. No: Apparent Distress HEENT: positive: EOMI, CONSUELO, Normal ENT Inspection Respiratory/Chest: positive: Lungs Clear, Normal Breath Sounds. negative: Chest Tender, Respiratory Distress Cardiovascular: positive: Regular Rhythm, S1, S2, Bradycardia Gastrointestinal/Abdominal: positive: Normal Bowel Sounds, Flat, Soft. negative : Tender Extremity: positive: Normal Capillary Refill, Normal Inspection Integumentary: positive: Normal Color, Dry, Warm Neurologic: positive: Fully Oriented, Alert, Normal Mood/Affect, Normal Response , Motor Strength 5/5 Heart Score/ECG Review - History History: Highly suspicious - Electrocardiogram EKG: Normal - Age Age: >/= 65 - Risk Factors Risk Factors Heart Score: Yes Hx Hypercholesterolemia, Yes Hx Hypertension Based on the list above the patient has:: 1-2 risk factors - Troponin Troponin: </= normal limit - Score Heart Score - Total: 5 Moderate Sedation - Procedure Monitoring Vital Signs: Procedure Monitoring Vital Signs Temperature 97.7 F 04/24/18 11:22 Pulse Rate 58 L 04/24/18 13:36 Respiratory Rate 17 04/24/18 13:36 Blood Pressure 125/78 04/24/18 13:36 O2 Sat by Pulse Oximetry (%) 98 04/24/18 13:36 ED Treatment Course - LABORATORY CBC & Chemistry Diagram: 04/24/18 14:00 04/24/18 14:00 - ADDITIONAL ORDERS Additional order review: Laboratory Results 04/24/18 04/24/18 04/24/18 14:31 14:00 14:00 PT with INR 12.40 INR 1.05 Sodium 137 Potassium 3.7 Chloride 104 Carbon Dioxide 27 Anion Gap 7 L BUN 17 Creatinine 0.9 Creat Clearance w eGFR > 60 Random Glucose 88 Calcium 8.4 L Magnesium 2.3 Total Bilirubin 0.3 AST 22 ALT 29 Alkaline Phosphatase 115 Creatine Kinase Cancelled Troponin I 0.02 Total Protein 7.0 Albumin 3.6 Urine Color Straw Urine Appearance Clear Urine pH 7.0 D Ur Specific [place] 1.010 Urine Protein Negative Urine Glucose (UA) Negative Urine Ketones Negative Urine Blood Negative Urine Nitrite Negative Urine Bilirubin Negative Urine Urobilinogen Negative Ur Leukocyte Esterase Negative 04/24/18 14:00 RBC 4.24 MCV 95.3 MCHC 34.7 RDW 14.3 MPV 10.0 Neutrophils % 37.4 L D Lymphocytes % 43.7 H Monocytes % 10.1 Eosinophils % 7.4 H Basophils % 1.4 - RADIOLOGY Radiology Studies Ordered: Category Date Time Status CHEST X-RAY PORTABLE* [RAD] Stat Radiology 04/24/18 13:51 Taken - Medications Given in the ED: ED Medications Discontinued Medications Generic Name Dose Route Start Last Admin Trade Name Freq PRN Reason Stop Dose Admin Aspirin 162 mg 04/24/18 13:51 04/24/18 14:06 Asa - PO 04/24/18 13:52 162 mg ONCE ONE Administration Medical Decision Making - Medical Decision Making 04/24/18 15:33 ACS order set as we are suspecting ACS stable vs unstable angina due to worsening of pain on exertion, vs dissection vs pneumonia vs costochondritis Heart score is 5 so at a minimum we will admitt this patient to tele obs All labs negative, neg trops, ekg unchanged from previous. CXR: no acute processes. 04/24/18 15:40 Will admit to tele obs *DC/Admit/Observation/Transfer Diagnosis at time of Disposition: Atypical chest pain - Discharge Dispostion Decision to Admit order: Yes - Referrals Referrals: Last Tavera [Primary Care Provider] - - Patient Instructions - Post Discharge Activity
[2018-04-24 14:29] LABS: INR 1.05 (0.83-1.09); PROTHROMBIN TIME (PATIENT) 12.4 SEC (9.7-13.0)
[2018-04-24 14:52] LABS: ALBUMIN 3.6 g/dl (3.4-5.0); ALK PHOS 115 U/L (45-117); ANION GAP 7 MMOL/L (8-16); BILIRUBIN,TOTAL 0.3 mg/dL (0.2-1); BLOOD UREA NITROGEN 17 mg/dL (7-18); CALCIUM 8.4 mg/dL (8.5-10.1); CHLORIDE 104 mmol/L (98-107); CO2 27 mmol/L (21-32); CREATININE 0.9 mg/dL (0.55-1.3); GLUCOSE,RANDOM 88 mg/dL (74-106); MAGNESIUM 2.3 mg/dL (1.8-2.4); POTASSIUM 3.7 mmol/L (3.5-5.1); SGOT/AST 22 U/L (15-37); SGPT/ALT 29 U/L (13-61); SODIUM 137 mmol/L (136-145)
[2018-04-24 14:56] LABS: URINE APPEARANCE CLEAR; URINE BILIRUBIN NEGATIVE (<2.0 mg/dL); URINE COLOR STRAW; URINE GLUCOSE (UA) NEGATIVE (NEGATIVE); URINE KETONE NEGATIVE (NEGATIVE); URINE LEUK ESTERASE NEGATIVE (NEGATIVE); URINE NITRITE NEGATIVE (NEGATIVE); URINE PROTEIN NEGATIVE (NEGATIVE); URINE UROBILINOGEN NEGATIVE mg/dL (0.2-1.0)
--- NOTE | 2018-04-24 15:44 | PDOC ---
Attending Attestation - Resident Resident Name: Lance Craven - ED Attending Attestation I have performed the following: I have examined & evaluated the patient, The case was reviewed & discussed with the resident, I agree w/resident's findings & plan, Exceptions are as noted - HPI HPI: 04/24/18 16:14 The patient is a 67 year old male, with a significant PMH of hypertension and [place] s/p stent 2014, who presents to the emergency department with right sided chest pain beginning this morning. The patient states the right sided chest pain is a vague pain, rated 5/10 in intensity, non radiating, exacerbated with walking but present at rest as well. The patient states the chest pain is associated with shortness of breath on exertion. The patient also endorses chronic lower back pain which he states is bothering him worse than the chest pain at presentation. The patient denies headache, focal weakness/numbness and dizziness. Denies fever, chills, nausea, vomit, diarrhea and constipation. Denies dysuria, frequency, urgency and hematuria. Allergies: NKA - Physicial Exam PE: 04/24/18 16:14 GENERAL: Awake, alert, and fully oriented, in no acute distress HEAD: No signs of trauma EYES: PERRLA, EOMI, sclera anicteric, conjunctiva clear ENT: Auricles normal inspection, hearing grossly normal, nares patent, oropharynx clear without exudates. Moist mucosa NECK: Normal ROM, supple, no lymphadenopathy, JVD, or masses LUNGS: Breath sounds equal, clear to auscultation bilaterally. No wheezes, and no crackles HEART: Regular rate and rhythm, normal S1 and S2, no murmurs, rubs or gallops ABDOMEN: Soft, nontender, normoactive bowel sounds. No guarding, no rebound. No masses EXTREMITIES: Normal range of motion, no edema. No clubbing or cyanosis. No cords, erythema, or tenderness NEUROLOGICAL: Normal speech, cranial nerves intact, equal strength and sensation b/l BACK: No midline cervical, thoracic, lumbar ttp SKIN: Warm, Dry, normal turgor, no rashes or lesions noted. - Medical Decision Making 04/24/18 16:19 67yo M with MMP including CAD presents to the ED with CP at rest and with exertion since this AM. Vitals unremarkable. Exam unremarkable. EKG unchanged compared to prior. In light of HS of 6, and persistent CP, will admit to tele obs. Pt denies SOB at this time, vitals within normal limits, no PE RF and thus unlikely PE. Heart Score/ECG Review - History History: Moderately suspicious - Electrocardiogram EKG: Non specific repolarization disturbance - Age Age: >/= 65 - Risk Factors Based on the list above the patient has:: >/=3 risk factors or Hx atherosclerotic disease - Troponin Troponin: </= normal limit - Score Heart Score - Total: 6 #1 04/24/18 16:16 Twelve-lead EKG was performed and reviewed by me. Sinus bradycardia, rate 55. Normal axis. No ST elevations or T-wave inversions. Q-wave in V2. When compared to EKG from June 2017, no significant change.
[2018-04-24] MEDS ORDERED: metoPROLOL SUCCINATE 25 MG TAB.SR.24H (FP) PO SCH (16:33)
[2018-04-24] MEDS ORDERED: oxyCODONE HCL 5 MG TABLET PO PRN (16:34)
[2018-04-24] MEDS ORDERED: ACETAMINOPHEN 325 MG TABLET (FP) PO PRN (16:34)
--- NOTE | 2018-04-24 16:37 | HP ---
Admitting History and Physical - Primary Care Physician PCP: Ayse Andrews I - Admission Chief Complaint: chest pain History of Present Illness: The patient is a 67 year old male, with a significant PMH of hypertension and [place] s/p stent 2014, who presents to the emergency department with right sided chest pain beginning this morning. The patient states the right sided chest pain is a vague pain, rated 5/10 in intensity, non radiating, exacerbated with walking but present at rest as well. The patient states the chest pain is associated with shortness of breath on exertion. The patient also endorses chronic lower back pain which he states is bothering him worse than the chest pain at presentation. History Source: Patient, Medical Record - Smoking History Smoking history: Never smoked Have you smoked in the past 12 months: No - Alcohol/Substance Use Hx Alcohol Use: No Home Medications - Allergies Allergies/Adverse Reactions: Allergies Allergy/AdvReac Type Severity Reaction Status Date / Time No Known Allergies Allergy Verified 04/24/18 11:21 - Home Medications Home Medications: Ambulatory Orders Amlodipine Besylate [Norvasc -] 10 mg PO DAILY 07/11/16 Aspirin [ASA -] 81 mg PO DAILY 07/11/16 Losartan Potassium 100 mg PO DAILY 07/11/16 Atorvastatin Ca [Lipitor] 20 mg PO HS tablet 06/23/17 Calcium 250Mg/Vit-D 125 Units [Oscal 250 mg+D -] 1 tab PO BID tab 06/23/17 Metoprolol Succinate [Toprol XL -] 25 mg PO DAILY tab.sr.24h 06/23/17 Cyclobenzaprine HCl [Flexeril 10 mg] 10 mg PO HS PRN #10 tablet 01/07/18 Review of Systems - Review of Systems Cardiovascular: reports: No Symptoms Respiratory: reports: No Symptoms Musculoskeletal: reports: Back Pain Physical Examination Vital Signs: Vital Signs Temperature 97.7 F 04/24/18 11:22 Pulse Rate 58 L 04/24/18 13:36 Respiratory Rate 17 04/24/18 13:36 Blood Pressure 125/78 04/24/18 13:36 O2 Sat by Pulse Oximetry (%) 98 04/24/18 13:36 Constitutional: Yes: Calm Cardiovascular: Yes: Regular Rate and Rhythm, S1, S2 Respiratory: Yes: CTA Bilaterally Gastrointestinal: Yes: Normal Bowel Sounds, Soft Edema: No Labs: CBC, BMP 04/24/18 14:00 04/24/18 14:00 Imaging - Results Chest X-ray: Image Reviewed Problem List - Problems (1) Atypical chest pain Assessment/Plan: observation tele echo cardiology consult asa statin toprol 25 mg stress echo CE 3 sets Code(s): R07.89 - OTHER CHEST PAIN (2) Back pain Assessment/Plan: oxycodone physical therapy lumbar spine Code(s): M54.9 - DORSALGIA, UNSPECIFIED
[2018-04-24] MEDS ORDERED: ATORVASTATIN CA 20 MG TABLET (FP) PO SCH (22:00)
[2018-04-25] MEDS: HEPARIN NA (PORCINE) 5,000 UNITS/ML 1ML VIAL SQ SCH ×2 (01:15→10:08)
[2018-04-25] MEDS ORDERED: HEPARIN NA (PORCINE) 5,000 UNITS/ML 1ML VIAL ONE ×2 (02:07→10:11)
[2018-04-25 06:13] LABS: HEMATOCRIT 38.3 % (35.4-49); HEMOGLOBIN 13.3 GM/dL (11.7-16.9); MCH 32.5 pg (25.7-33.7); MCHC 34.7 g/dl (32.0-35.9); MEAN CELL VOLUME 93.6 fl (80-96); MEAN PLT VOLUME 9.9 fl (7.5-11.1); PLATELET COUNT 224 K/MM3 (134-434); RBC 4.09 M/mm3 (4.00-5.60); RDW 14.1 % (11.9-15.9); WHITE BLOOD COUNT 5.6 K/mm3 (4.0-10.0)
[2018-04-25 06:27] LABS: INR 1.06 (0.83-1.09); PROTHROMBIN TIME (PATIENT) 12.5 SEC (9.7-13.0)
[2018-04-25 07:03] LABS: ALBUMIN 3.3 g/dl (3.4-5.0); ALK PHOS 117 U/L (45-117); ANION GAP 6 MMOL/L (8-16); BILIRUBIN,TOTAL 0.3 mg/dL (0.2-1); BLOOD UREA NITROGEN 20 mg/dL (7-18); CALCIUM 8.3 mg/dL (8.5-10.1); CHLORIDE 105 mmol/L (98-107); CO2 25 mmol/L (21-32); CREATININE 1.2 mg/dL (0.55-1.3); GLUCOSE,RANDOM 103 mg/dL (74-106); MAGNESIUM 2.2 mg/dL (1.8-2.4); N-TERMINAL BNP 108.1 pg/ml (5-125); POTASSIUM 3.8 mmol/L (3.5-5.1); SGOT/AST 7 U/L (15-37); SGPT/ALT 28 U/L (13-61); SODIUM 136 mmol/L (136-145); TOT PROT 6.7 g/dl (6.4-8.2)
[2018-04-25] MEDS ORDERED: amLODIPine BESYLATE 10 MG TABLET (FP) PO SCH (08:00)
[2018-04-25] MEDS ORDERED: metoPROLOL SUCCINATE 25 MG TAB.SR.24H (FP) PO SCH (08:00)
[2018-04-25] MEDS ORDERED: ACETAMINOPHEN 325 MG TABLET (FP) ONE (08:28)
[2018-04-25] MEDS ORDERED: oxyCODONE HCL 5 MG TABLET ONE (08:30)
--- NOTE | 2018-04-25 09:53 | EKG ---
Test Reason : Blood Pressure : / mmHG Vent. Rate : 055 BPM Atrial Rate : 055 BPM P-R Int : 182 ms QRS Dur : 104 ms QT Int : 412 ms P-R-T Axes : 073 061 069 degrees QTc Int : 394 ms SINUS BRADYCARDIA SEPTAL INFARCT (CITED ON OR BEFORE 17-FEB-2015) ABNORMAL ECG WHEN COMPARED WITH ECG OF 20-JUN-2017 21:05, NO SIGNIFICANT CHANGE WAS FOUND Confirmed by MARTHA BERGER, HERNANDEZ ([id number]) on 04/25/2018 9:52:45 AM Referred By: Confirmed By:HERNANDEZ THOMAS MD
[2018-04-25] MEDS ORDERED: ASPIRIN 81 MG CHEWABLE TABLETS PO SCH (10:00)
[2018-04-25] MEDS ORDERED: LOSARTAN POTASSIUM 50 MG TABLET (FP) PO SCH (10:00)
[2018-04-25] MEDS ORDERED: amLODIPine BESYLATE 5 MG TABLET (FP) ONE (10:11)
[2018-04-25] MEDS ORDERED: ASPIRIN 81 MG CHEWABLE TABLETS ONE (10:11)
--- NOTE | 2018-04-25 10:25 | PN ---
Progress Note, Physician History of Present Illness: no further chest pain - Current Medication List Current Medications: Active Medications Acetaminophen (Tylenol -) 650 mg PO Q6H PRN PRN Reason: PAIN LEVEL 7 - 10 Last Admin: 04/25/18 08:48 Dose: 650 mg Amlodipine Besylate (Norvasc -) 10 mg PO DAILY@0800 [facility] Last Admin: 04/25/18 08:08 Dose: 10 mg Aspirin (Asa -) 81 mg PO DAILY [facility] Last Admin: 04/25/18 10:08 Dose: 81 mg Atorvastatin Calcium (Lipitor -) 20 mg PO HS [facility] Last Admin: 04/25/18 01:15 Dose: 20 mg Heparin Sodium (Porcine) (Heparin -) 5,000 unit SQ BID [facility] Last Admin: 04/25/18 10:08 Dose: 5,000 unit Losartan Potassium (Cozaar -) 50 mg PO DAILY [facility] Metoprolol Succinate (Toprol Xl -) 25 mg PO DAILY [facility] Last Admin: 04/25/18 08:08 Dose: 25 mg Oxycodone HCl (Roxicodone -) 5 mg PO Q6H PRN PRN Reason: PAIN LEVEL 7 - 10 Last Admin: 04/25/18 08:46 Dose: 5 mg - Objective Vital Signs: Vital Signs Temperature 98.3 F 04/24/18 16:50 Pulse Rate 52 L 04/24/18 16:50 Respiratory Rate 18 04/24/18 16:50 Blood Pressure 128/78 04/24/18 16:50 O2 Sat by Pulse Oximetry (%) 98 04/24/18 16:50 Cardiovascular: Yes: Bradycardia, S1, S2 Respiratory: Yes: Regular, CTA Bilaterally Gastrointestinal: Yes: Normal Bowel Sounds, Soft Edema: No Labs: CBC, BMP 04/25/18 05:15 04/25/18 05:15 INR, PTT INR 1.06 (0.83-1.09) 04/25/18 05:15 Problem List - Problems (1) Atypical chest pain Assessment/Plan: -CE NEGATIVE -CARDIOLOGY CONSULT--PT CARDIO DR FELIPE STRESS TEST PER CARDIO Code(s): R07.89 - OTHER CHEST PAIN (2) Myocardial infarct, old Assessment/Plan: S/P STENTING OBTAIN OLD RECORDS Code(s): I25.2 - OLD MYOCARDIAL INFARCTION (3) HLD (hyperlipidemia) Assessment/Plan: -ON STATIN Code(s): E78.5 - HYPERLIPIDEMIA, UNSPECIFIED (4) HTN (hypertension) Assessment/Plan: -CONTROLLED Code(s): I10 - ESSENTIAL (PRIMARY) HYPERTENSION
[2018-04-25 11:00] LABS: CHOLESTEROL 144 mg/dL (50-200); HDL CHOLESTEROL 32 mg/dL (40-60); TRIGLYCERIDES 313 mg/dL (0-150)
[2018-04-25 15:29] VITALS: BP 128/71; PULSE 54; TEMP 98.1; BMI 29.0
== END 2018-04-25 12:14 | disposition left against medical advice (07) ==
LOC: JER 11:16 → JERBED 15:49
PROVIDERS: ADMIT Student in an Organized Health Care Education/Training Program; ATTEND Student in an Organized Health Care Education/Training Program
PROC: 3E013GC Introduction of Other Therapeutic Substance into Subcutaneous Tissue, Percutaneous Approach (ICD-10-PCS; principal; 2018-04-24)
DX: R07.89 Other chest pain (principal); M54.9 Dorsalgia, unspecified; R00.1 Bradycardia, unspecified; I10 Essential (primary) hypertension; E78.5 Hyperlipidemia, unspecified; I25.2 Old myocardial infarction; Z95.1 Presence of aortocoronary bypass graft; Z95.5 Presence of coronary angioplasty implant and graft; Z79.82 Long term (current) use of aspirin
CPT/HCPCS: 36415; 71045-TC-FY; 72100-TC-FY; 80048; 80053; 80061; 81003; 82550; 83721; 83735; 83880; 84100; 84484; 85025; 85027; 85610; 87086; 93005; 93010; 96372; 99284-25; G0378; J1644

== ENCOUNTER 2021-12-16 22:46 | Observation (INO) | payer OTHER ==
[2021-12-16 23:59] LABS: BASO % 1.1 % (0-2.0); EOS % 5.7 % (0-4.5); HEMATOCRIT 42.2 % (35.4-49); HEMOGLOBIN 14.7 GM/dL (11.7-16.9); LYMPH % 45.8 % (8-40); MCH 32.9 pg (25.7-33.7); MCHC 34.8 g/dl (32.0-35.9); MEAN CELL VOLUME 94.4 fl (80-96); MEAN PLT VOLUME 8.9 fl (7.5-11.1); MONO % 11.9 % (3.8-10.2); NEUT % 35.5 % (42.8-82.8); PLATELET COUNT 218 10^3/uL (134-434); RBC 4.47 M/mm3 (4.00-5.60); RDW 14.5 % (11.9-15.9); WHITE BLOOD COUNT 5.5 K/mm3 (4.0-10.0)
[2021-12-17 00:23] LABS: BLOOD UREA NITROGEN 18.7 mg/dL (7-18); CALCIUM 8.7 mg/dL (8.5-10.1)
[2021-12-17 00:24] LABS: ALBUMIN 3.7 g/dl (3.4-5.0); MAGNESIUM 2.5 mg/dL (1.8-2.4)
[2021-12-17 00:25] LABS: INR 1.08 (0.83-1.09); PROTHROMBIN TIME (PATIENT) 12.4 SEC (9.7-13.0)
[2021-12-17 00:27] LABS: CREATININE 1.4 mg/dL (0.55-1.3)
[2021-12-17 00:28] LABS: ACTIVATED PTT 26.2 SECONDS (25.2-36.5); BILIRUBIN,TOTAL 0.6 mg/dL (0.2-1); TOT PROT 7.6 g/dl (6.4-8.2)
[2021-12-17] MEDS ORDERED: SODIUM CHLORIDE 0.9% 500 ML INFUS.BAG IV ONE (00:41)
[2021-12-17] MEDS ORDERED: SODIUM CHLORIDE 1,000 ML IV SCH (03:30)
[2021-12-17 06:45] LABS: BASO % 0.6 % (0-2.0); EOS % 3.8 % (0-4.5); HEMATOCRIT 45.4 % (35.4-49); HEMOGLOBIN 15.1 GM/dL (11.7-16.9); LYMPH % 41.7 % (8-40); MCH 31.7 pg (25.7-33.7); MCHC 33.2 g/dl (32.0-35.9); MEAN CELL VOLUME 95.6 fl (80-96); MEAN PLT VOLUME 9.6 fl (7.5-11.1); MONO % 7.7 % (3.8-10.2); NEUT % 46.2 % (42.8-82.8); PLATELET COUNT 215 10^3/uL (134-434); RBC 4.75 M/mm3 (4.00-5.60); RDW 14.8 % (11.9-15.9); RETICULOCYTES 1.49 % (0.5-1.5); WHITE BLOOD COUNT 6.3 K/mm3 (4.0-10.0)
[2021-12-17 07:05] LABS: BLOOD UREA NITROGEN 18.9 mg/dL (7-18); CALCIUM 8.9 mg/dL (8.5-10.1); MAGNESIUM 2.3 mg/dL (1.8-2.4)
[2021-12-17 07:08] LABS: CREATININE 1.3 mg/dL (0.55-1.3); PHOSPHOROUS 3.1 mg/dL (2.5-4.9)
[2021-12-17] MEDS ORDERED: ASPIRIN COATED 81 MG TABLET.EC ONE (08:20)
[2021-12-17] MEDS ORDERED: amLODIPine BESYLATE 5 MG TABLET (FP) ONE (08:20)
[2021-12-17] MEDS ORDERED: ENOXAPARIN NA (PORCINE) 40 MG/0.4 ML DISP.SYRIN SQ ONE (08:20)
[2021-12-17] MEDS: amLODIPine BESYLATE 5 MG TABLET (FP) PO SCH (09:00)
[2021-12-17] MEDS: ASPIRIN COATED 81 MG TABLET.EC PO SCH (09:00)
[2021-12-17] MEDS: ENOXAPARIN NA (PORCINE) 40 MG/0.4 ML DISP.SYRIN SQ SCH (09:00)
[2021-12-17 21:05] VITALS: BMI 28.3
[2021-12-17] MEDS ORDERED: ATORVASTATIN CA 80 MG TABLET (FP) PO SCH (22:00)
[2021-12-18] MEDS: amLODIPine BESYLATE 5 MG TABLET (FP) PO SCH (09:57)
[2021-12-18] MEDS: ENOXAPARIN NA (PORCINE) 40 MG/0.4 ML DISP.SYRIN SQ SCH (09:57)
[2021-12-18] MEDS: ASPIRIN COATED 81 MG TABLET.EC PO SCH (09:57)
[2021-12-18 15:50] VITALS: BP 128/73; PULSE 54; RESP 18; TEMP 98.6
== END 2021-12-18 17:22 | disposition home or self-care (01) ==
LOC: JER 22:46 → JERBED 12-17 00:21 → J4W 12-17 19:19
PROVIDERS: ADMIT Family Medicine; ATTEND Internal Medicine
PROC: 3E023GC Introduction of Other Therapeutic Substance into Muscle, Percutaneous Approach (ICD-10-PCS; principal; 2021-12-17)
PROC: 3E0337Z Introduction of Electrolytic and Water Balance Substance into Peripheral Vein, Percutaneous Approach (ICD-10-PCS; 2021-12-17)
DX: I25.10 Atherosclerotic heart disease of native coronary artery without angina pectoris (principal); I11.9 Hypertensive heart disease without heart failure; R55 Syncope and collapse; E78.5 Hyperlipidemia, unspecified
CPT/HCPCS: 36415; 71045-TC-FY; 80048; 80053; 80061; 82607; 82728; 82746; 83540; 83550; 83615; 83735; 84100; 84443; 84484; 85025; 85045; 85610; 85730; 93005; 93010; 93306-TC; 96372; 97116-GP; 97161-GP; 99285-25; C9803-CS; G0378; U0003; U0005

== ENCOUNTER 2022-09-12 12:02 | Observation (INO) | payer OTHER ==
[2022-09-12] MEDS ORDERED: SODIUM CHLORIDE 0.9% 500 ML INFUS.BAG IV ONE (13:11)
[2022-09-12 14:05] LABS: BASO % 0.4 % (0-2.0); HEMATOCRIT 40.4 % (35.4-49); HEMOGLOBIN 13.9 GM/dL (11.7-16.9); LYMPH % 29.7 % (8-40); MCH 31.2 pg (25.7-33.7); MCHC 34.3 g/dl (32.0-35.9); MEAN PLT VOLUME 8.2 fl (7.5-11.1); MONO % 9.9 % (3.8-10.2); PLATELET COUNT 189 10^3/uL (134-434); RBC 4.44 M/mm3 (4.00-5.60); RDW 14.6 % (11.9-15.9); WHITE BLOOD COUNT 5.3 K/mm3 (4.0-10.0)
[2022-09-12 14:16] LABS: POTASSIUM 3.6 mmol/L (3.5-5.1)
[2022-09-12 14:18] LABS: CALCIUM 8.6 mg/dL (8.5-10.1)
[2022-09-12 14:19] LABS: ALBUMIN 3.5 g/dl (3.4-5.0); BLOOD UREA NITROGEN 18.5 mg/dL (7-18)
[2022-09-12 14:22] LABS: CREATININE 1.3 mg/dL (0.55-1.3)
[2022-09-12 14:23] LABS: BILIRUBIN,TOTAL 0.8 mg/dL (0.2-1); TOT PROT 7.1 g/dl (6.4-8.2)
[2022-09-12] MEDS ORDERED: CEFTRIAXONE 1 GM in DEXTROSE 5%-WATER - 50 ML IVPB SCH (15:57)
[2022-09-12] MEDS ORDERED: ATORVASTATIN CA 80 MG TABLET (FP) PO SCH (22:00)
[2022-09-12] MEDS ORDERED: ATORVASTATIN CA 40 MG TABLET (FP) ONE (23:09)
[2022-09-13] MEDS ORDERED: ATORVASTATIN CA 40 MG TABLET (FP) PO SCH (06:17)
[2022-09-13 08:28] LABS: HEMOGLOBIN 13.5 GM/dL (11.7-16.9); MCH 31.8 pg (25.7-33.7); MCHC 34.7 g/dl (32.0-35.9); MEAN CELL VOLUME 91.5 fl (80-96); MEAN PLT VOLUME 8.7 fl (7.5-11.1); PLATELET COUNT 186 10^3/uL (134-434); RBC 4.26 M/mm3 (4.00-5.60); RDW 14.6 % (11.9-15.9); WHITE BLOOD COUNT 5.6 K/mm3 (4.0-10.0)
[2022-09-13 08:42] LABS: POTASSIUM 3.6 mmol/L (3.5-5.1)
[2022-09-13 08:43] LABS: CALCIUM 8.6 mg/dL (8.5-10.1); MAGNESIUM 2.4 mg/dL (1.8-2.4)
[2022-09-13 08:44] LABS: BLOOD UREA NITROGEN 16.4 mg/dL (7-18)
[2022-09-13 08:47] LABS: CREATININE 1.1 mg/dL (0.55-1.3); PHOSPHOROUS 2.4 mg/dL (2.5-4.9)
[2022-09-13] MEDS ORDERED: NAPH,MB-DB/K PH,MBDB POWDER PACKET PO ONE (08:53)
[2022-09-13] MEDS ORDERED: NAPH,MB-DB/K PH,MBDB POWDER PACKET ONE (09:58)
[2022-09-13] MEDS ORDERED: CEFTRIAXONE 1 GM/50 ML BAG ONE (09:58)
[2022-09-13] MEDS: CEFTRIAXONE 1 GM in DEXTROSE 5%-WATER - 50 ML IVPB SCH (10:15)
[2022-09-13] MEDS: ASPIRIN COATED 81 MG TABLET.EC PO SCH (10:15)
[2022-09-13 19:05] VITALS: BMI 30.4
[2022-09-14 06:24] VITALS: RESP 16
[2022-09-14 08:56] VITALS: BP 131/62; PULSE 55; TEMP 98.2
[2022-09-14] MEDS: CEFTRIAXONE 1 GM in DEXTROSE 5%-WATER - 50 ML IVPB SCH (09:06)
[2022-09-14] MEDS: ASPIRIN COATED 81 MG TABLET.EC PO SCH (09:09)
== END 2022-09-14 13:14 | disposition home or self-care (01) ==
LOC: JER 12:02 → JERBED 15:42 → J4W 09-13 18:02
PROVIDERS: ADMIT Family Medicine; ATTEND Family Medicine
PROC: 3E03329 Introduction of Other Anti-infective into Peripheral Vein, Percutaneous Approach (ICD-10-PCS; principal; 2022-09-12)
PROC: 3E0337Z Introduction of Electrolytic and Water Balance Substance into Peripheral Vein, Percutaneous Approach (ICD-10-PCS; 2022-09-12)
DX: R55 Syncope and collapse (principal); I25.10 Atherosclerotic heart disease of native coronary artery without angina pectoris; R07.89 Other chest pain; R00.1 Bradycardia, unspecified; E78.5 Hyperlipidemia, unspecified; I10 Essential (primary) hypertension; R91.8 Other nonspecific abnormal finding of lung field; E83.39 Other disorders of phosphorus metabolism
CPT/HCPCS: 36415; 71045-TC-FY; 80048; 80053; 82962; 83735; 84100; 84443; 84484; 85025; 85027; 87040; 93005; 93010; 93306-TC; 93880-TC; 96365; 99285-25; G0378

== ENCOUNTER 2023-11-20 00:30 | Emergency (ER) | payer OTHER ==
[2023-11-20 00:48] VITALS: BMI 30.2
[2023-11-20] MEDS ORDERED: METOCLOPRAMIDE HCL INJECTION 10 MG/2 ML VIAL ONE (01:34)
[2023-11-20] MEDS ORDERED: ACETAMINOPHEN INJECTION 100 ML ONE (01:34)
[2023-11-20] MEDS: SODIUM CHLORIDE 0.9% 500 ML INFUS.BAG IV ONE (01:46)
[2023-11-20] MEDS: ACETAMINOPHEN 1000 MG/100 ML BAG IVPB ONE (01:46)
[2023-11-20] MEDS: METOCLOPRAMIDE HCL INJECTION 10 MG/2 ML VIAL IVPB ONE (01:46)
[2023-11-20 02:00] LABS: BASO % 0.7 % (0-2.0); EOS % 5.8 % (0-4.5); HEMATOCRIT 41.8 % (35.4-49); HEMOGLOBIN 14.2 GM/dL (11.7-16.9); LYMPH % 45.3 % (8-40); MCH 31.8 pg (25.7-33.7); MCHC 34.1 g/dl (32.0-35.9); MEAN CELL VOLUME 93.2 fl (80-96); MEAN PLT VOLUME 8.5 fl (7.5-11.1); MONO % 10.9 % (3.8-10.2); NEUT % 37.3 % (42.8-82.8); PLATELET COUNT 235 10^3/uL (134-434); RBC 4.49 M/mm3 (4.00-5.60); WHITE BLOOD COUNT 4.9 K/mm3 (4.0-10.0)
[2023-11-20 02:27] LABS: POTASSIUM 4.3 mmol/L (3.5-5.1)
[2023-11-20 02:29] LABS: CALCIUM 8.9 mg/dL (8.5-10.1)
[2023-11-20 02:30] LABS: BLOOD UREA NITROGEN 17.3 mg/dL (7-18)
[2023-11-20 02:33] LABS: CREATININE 1.1 mg/dL (0.55-1.3)
[2023-11-20 02:34] LABS: BILIRUBIN,TOTAL 0.4 mg/dL (0.2-1); TOT PROT 7.7 g/dl (6.4-8.2)
[2023-11-20 03:02] VITALS: BP 118/72; PULSE 62; RESP 16; TEMP 98
== END 2023-11-20 03:02 | disposition home or self-care (01) ==
LOC: JER 00:30
PROC: 3E033NZ Introduction of Analgesics, Hypnotics, Sedatives into Peripheral Vein, Percutaneous Approach (ICD-10-PCS; principal; 2023-11-20)
PROC: 3E033GC Introduction of Other Therapeutic Substance into Peripheral Vein, Percutaneous Approach (ICD-10-PCS; 2023-11-20)
DX: M54.2 Cervicalgia (principal); R51.9 Headache, unspecified
CPT/HCPCS: 36415; 70450-TC; 80053; 85025; 96374; 96375; 99284-25; J0131

== ENCOUNTER 2023-11-24 19:11 | Emergency (ER) | payer OTHER ==
[2023-11-24 19:17] VITALS: BP 134/76; PULSE 70; RESP 16; TEMP 98.1; BMI 29.5
[2023-11-24] MEDS ORDERED: LIDOCAINE 4% PATCH TP ONE (19:55)
[2023-11-24] MEDS ORDERED: KETOROLAC TROMETHAMINE 15 MG/ML VIAL ONE (19:55)
[2023-11-24] MEDS ORDERED: METHOCARBAMOL 500 MG TABLET ONE (19:55)
[2023-11-24] MEDS: METHOCARBAMOL 500 MG TABLET PO ONE (20:04)
[2023-11-24] MEDS: LIDOCAINE 4% PATCH TP ONE (20:04)
[2023-11-24] MEDS: KETOROLAC TROMETHAMINE 30 MG/1 ML VIAL IM ONE (20:04)
[2023-11-24] MEDS ORDERED: LIDOCAINE PATCH REMOVAL MC SCH (22:00)
== END 2023-11-24 21:25 | disposition home or self-care (01) ==
LOC: JER 19:11
PROC: 3E0133Z Introduction of Anti-inflammatory into Subcutaneous Tissue, Percutaneous Approach (ICD-10-PCS; principal; 2023-11-24)
DX: M54.2 Cervicalgia (principal)
CPT/HCPCS: 96372; 99284-25